=== PATIENT | female | born 1935 | race African-American/Black ===

== ENCOUNTER 2016-05-19 23:21 | Inpatient (IN) | payer MEDICARE, OTHER ==
--- NOTE | ~2016-05-19 | CR72 ---
[facility] A Service of [facility] & [facility] RADIOLOGY TEXT RESULTS PATIENT: LEON HERMAN LOCATION: [address] : 34 UNIT #: [id number] AGE: [address]: Dedra Callahan MD SEX: F ORDER DR: [id number] [facility] [address] [facility]. [place], [place] [address] [id number] I MR#: [id number] Acc #: [id number] NAME: LEON HERMAN : 1935 SEX: F STUDY DATE/TIME: 05/22/2016 5:17 UNIT: [facility] ROOM: [facility] STUDY DESCRIPTION: CR Chest Single View Portable Attending Physician: Dedra Callahan M.D. Ordering Physician: Lissett Smith M.D. Primary Care Physician: Narinder Kay M.D. MEDICAL IMAGING REPORT This report is preliminary unless electronic signature is present EXAM Portable chest INDICATION Aspiration pneumonia. Shortness of air. Respiratory failure. Follow-up endotracheal tube. FINDINGS Today's portable view of the chest is compared with yesterday's study and there has been no change. The endotracheal tube and central venous catheter is stable and there are diffuse predominantly lower lobe infiltrates. Heart size is normal. Dictated by... Enrique Mora M.D. THIS IS AN ELECTRONICALLY VERIFIED REPORT Enrique Mora M.D. at 05/22/2016 12:28 PM DEBBIE/mya TD: 05/22/2016 09:08 JOB #: [id number] MEDICAL IMAGING REPORT Page 1 of 1 COPY
--- NOTE | ~2016-05-19 | FU ---
[facility] Nutrition Therapy DATE: 05/26/16 Patient: LEON HERMAN Physician: MARTHA Address: [address] [facility] Room/Bed: [address], Zip: [place] [address] Admit Date: 05/20/16 Date of : 34 Height: 5 4 Weight: 139 63.5 NUTRITION MONITORING/FOLLOW-UP: Reason: Follow-up Anthropometrics: Ht: 5'7" Adm wt: 48.2 kg (106#) BMI: 16.6 Current wt not accurate (63.2 kg) Labs: K+ 3.2, Cl- 99, Ca++ 7.9, Alb 1.7 Meds: Dopamine, NaCl, Versed, Protonix, Ascorbic acid, Mg, K I&O's: 4882/2300, last BM 05/26 Skin: Pressure ulcer (coccyx), contractures (L leg, BUBBA arms) Estimated Nutrition Needs: 7595-6901 kcal (35-40 kcal/kg) 72-96 g protein (1.5-2.0 g/kg) Assessment: Chart reviewed, events noted. Pt is still intubated in ICU. Enteral nutrition has been on hold since 05/23. Per RN, PEG was leaking around site. RN stated pt had KUB which showed no GI issues, except balloon from PEG was not inflated; balloon is now inflated. Per RN, pt's GI motility is slow, requested slow rate X 24 hrs for enteral nutrition. See recommendations below. Dx: Severe protein calorie malnutrition RT current clinical condition, multiple areas of skin breakdow AEB enteral nutrition on hold, delayed wound healing, BMI 16.6, 79% IBW. -ACTIVE Intervention: 1. Enteral nutrition Monitoring, Evaluation and Goals: 1. Enteral nutrition; provide >80% of estimated nutrition needs and goal volume X 24 hrs 2. Weight; prevent unintentional weight loss, promote gradual weight gain 3. Skin; promote skin healing 4. GI; promote regular GI function Recommendations: 1. Once medically feasible, initiate enteral nutrition of TwoCal @ 20 mL/hr, increase by 10 mL q 6 hrs to goal rate of 40 mL/hr x 24 hrs (to run for 24 hrs instead of the previous regimen). This will provide: 1920 kcal/ 80 g protein/ 672 mL H2O. [facility] Nutrition Therapy DATE: 05/26/16 Patient: DANIELAJEFFERSON GRISSOMZULEYMA Physician: MARTHA Address: [address] [facility] Room/Bed: [address], Zip: [place] [address] Admit Date: 05/20/16 Date of : 34 Height: 5 4 Weight: 139 63.5 2. Once enteral nutrition resumed, add Sanchez BID to enteral nutrition regimen to promote skin healing. 3. Obtain accurate weight for trending purposes. Status: Pt is at a severe nutritional risk. RD will f/u per protocol. Respectfully, Azalea Mcmullen, Charger Claire Sin, RD, LD Food and Nutritional Services [facility] cc: client file
--- NOTE | ~2016-05-19 | EKG ---
PATIENT: LEON HERMAN UNIT #: [id number] Ventricular Rate: 54 BPM Atrial Rate: 54 BPM P-R Interval: 136 ms QRS Duration: 86 ms Q-T Interval: 482 ms QTC Calculation(Bezet): 457 ms P Enola: 32 degrees Calculated R Enola: -9 degrees Calculated T Enola: 37 degrees Diagnosis Line: Sinus bradycardia Diagnosis Line: Low voltage QRS Diagnosis Line: Borderline ECG Diagnosis Line: When compared with ECG of 21-MAY-2016 18:34, Diagnosis Line: Sinus rhythm has replaced Atrial fibrillation Diagnosis Line: Vent. rate has decreased BY 95 BPM Diagnosis Line: Questionable change in QRS axis Diagnosis Line: ST no longer depressed in Anterolateral leads Diagnosis Line: T wave inversion no longer evident in Diagnosis Line: Anterolateral leads Diagnosis Line: Confirmed by ANA MARIA CALDWELL MD ([id number]) on 05/27/2016 Diagnosis Line: 10:23:02 PM INTERPRETING MD: PAULETTE FRIAS
--- NOTE | ~2016-05-19 | CR72 ---
[facility] A Service of [facility] & [facility] RADIOLOGY TEXT RESULTS PATIENT: LEON HERMAN LOCATION: [address]13 : 34 UNIT #: [id number] AGE: [address]: Dedra Callahan MD SEX: F ORDER DR: [id number] [facility] [address] [facility]. [place], [place] [address] [id number] I MR#: [id number] Acc #: [id number] NAME: LEON HERMAN : 1935 SEX: F STUDY DATE/TIME: 05/21/2016 19:48 UNIT: [facility] ROOM: [facility] STUDY DESCRIPTION: CR Chest Single View Portable Attending Physician: Dedra Callahan M.D. Ordering Physician: Lissett Smith M.D. Primary Care Physician: Narinder Kay M.D. MEDICAL IMAGING REPORT This report is preliminary unless electronic signature is present EXAM Portable chest, 05/21/2016 HISTORY Shortness of air. Intubated. Central line placement today. FINDINGS Right IJ central line has been placed since earlier today with its tip in the right atrium 1 cm beyond the junction of the SVC and right atrium. No pneumothorax. Persistent extensive interstitial infiltrate throughout the right lung and [id number] interstitial infiltrate in the left lung base. These are stable compared to earlier today. Persistent small bilateral pleural effusions. ETT tip remains 4 cm above the rosetta. Dictated by... Michael Dhillon M.D. THIS IS AN ELECTRONICALLY VERIFIED REPORT Michael Dhillon M.D. at 05/21/2016 11:28 PM LALITA/demian TD: 05/21/2016 21:12 JOB #: [id number] MEDICAL IMAGING REPORT Page 1 of 1 COPY
--- NOTE | ~2016-05-19 | CO ---
Unit #: [id number] #: [id number] Patient: LEON HERMAN [id number] [address] [place], [place] [address] [id number] I MR#: [id number] NAME: LEON HERMAN ROOM: [facility] Age: 80 Sex: F Admission Date: 05/20/2016 : 1935 Attending Physician: Dedra Callahan M.D. Primary Care Physician: Narinder Kay M.D. CONSULTATION REPORT REASON FOR CONSULTATION Critical care management. CHIEF COMPLAINT Shortness of breath. HISTORY OF PRESENT ILLNESS This patient basically is known to me from previous admission. Has a past medical history of hypoxic respiratory failure. Presents with a complaint of shortness of breath and has been admitted with impression of respiratory failure secondary to aspiration pneumonia, dehydration and history of decubitus ulcer. Started on IV antibiotics. She was admitted on May 20 and we have been consulted after patient became acutely decompensated and was in progressive respiratory failure and required intubation. She is currently on a ventilation and sedated. No IV access. We were asked to place the IV access. I am seeing the patient at the bedside. No family available. She is sedated, intubated, on a ventilator. REVIEW OF SYSTEMS Unobtainable. PAST MEDICAL HISTORY Significant for: 1. Coronary artery disease. 2. Hypertension. 3. Dyslipidemia. 4. Intracranial hemorrhage. 5. Vascular dementia. 6. Anemia. 7. Hydronephrosis. 8. Sacral decubitus ulcer. 9. Pseudomonas UTI. 10. Pneumonia. 11. C. diff colitis. 12. EGD. SOCIAL HISTORY Nonsmoker. No alcohol, no drug abuse. MEDICATIONS As per APR, has been reviewed. Unit #: [id number] #: [id number] Patient: LEON HERMAN ALLERGIES Have been reviewed. PHYSICAL EXAMINATION GENERAL: Currently sedated, intubated. VITAL SIGNS: Temperature is 98, pulse is 140, respirations 20 and blood pressure 90/40. NEUROLOGICAL: Sedated, intubated. CVS: S1+ S2. RESPIRATIONS: Bilateral air entry, bilateral mild rhonchi. GI: Nontender, soft. Bowel sounds positive. EXTREMITIES: Positive edema. DIAGNOSTIC STUDIES LABORATORY: pH of 7.36, pCO2 of 49, pO2 was 361. This was before intubation. Creatinine is 0.8. White count is 18, hemoglobin 8, hematocrit 27, platelet count is 406. ASSESSMENT AND PLAN 1. Acute hypoxic respiratory failure. 2. Pneumonia. 3. 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 4. History of Clostridium difficile colitis. 5. History of severe dementia. 6. Critically ill patient. 7. Shock. 8. Atrial fibrillation. Plan is to continue ventilator support, IV pressors, IV amiodarone. Broad spectrum antibiotics as per infectious disease which is already on board. GI and DVT prophylaxis. Continue current treatment. Will need bronchoscopy. Patient will be closely monitored. Total critical care time is 70 minutes in direct critical care of this patient. Dictated by... Coral Patrick/yenifer TD: 05/22/2016 05:54 JOB #: [id number] CONSULTATION REPORT Page 1 of 1 X Lissett Smith MD X CONSULTATION REPORT
--- NOTE | ~2016-05-19 | HP ---
Unit #: [id number] #: [id number] Patient: LEON HERMAN [id number] [address] [place], [place] [address] [id number] I MR#: [id number] NAME: LEON HERMAN ROOM: 313 Age: 80 Sex: F Admission Date: 05/20/2016 : 1935 Attending Physician: Eve Jeffery M.D. Primary Care Physician: Narinder Kay M.D. HISTORY AND PHYSICAL CHIEF COMPLAINT Respiratory failure/aspiration pneumonia, dehydration. 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 The patient's son is no longer present. He told the ER physician that the patient's O2 sats were noted to be low a few days ago via home health. She was brought to this emergency department late last evening with stable vital signs but with an O2 saturation of 90% on room air, and increased respirations. Chest x-ray shows mild to moderate bibasilar atelectasis versus infiltrates. In the ER, she was given IV vancomycin, and Zosyn. Also given one dose of Solu-Medrol although does not have significant bronchospasm. Labs are notable for an elevated lactic acid of 2, and dehydration. I have asked that a liter of IV saline be infused. The patient, herself, looks to be fairly comfortable except that she is mildly tachypneic. Of note, she has her own teeth. The patient was last admitted to this facility 03/30/2016 for aspiration pneumonia. Underwent bronchoscopy revealing thick secretions which were suctioned. Sputum cultures were only positive for normal respiratory trung. Blood cultures were negative. She did develop C. difficile colitis during that hospitalization. She was admitted 03/22/2016 with pneumonia. Blood cultures at that time were positive for Staph coag negative bacteremia, and she did have Pseudomonas urinary tract infection. Does have a chronic Concepcoin in place. PAST MEDICAL HISTORY 1. CAD, treated medically. Last echo 05/2015 revealed an ejection fraction of about 55% with mild MR and TR. Previous non-ST elevation MT 05/2015. 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 Is not anticoagulated due to previous hemorrhagic CVA. 2. Hypertension. 3. Hyperlipidemia. 4. Previous intracranial hemorrhage 11/2014. The patient is nonverbal. Requires chronic Concepcion catheter due to sacral decubitus, and requires PEG tube for dysphagia with tube feedings. 5. Vascular dementia. 6. Immobilization syndrome. 7. Anemia. 8. Hydronephrosis, status post ureteral sent and removal. Unit #: [id number] #: [id number] Patient: LEON HERMAN 9. Sacral decubitus. 10. Admission 03/22 through 03/29/2016 for Pseudomonas UTI, pneumonia with Staph coag negative bacteremia. 11. C. difficile colitis. 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 13. Chronic kidney disease. 14. EGD revealing mild gastritis. 15. Debridement of a sacral decubitus ulcer. 16. Exploratory lap with repair of parastomal hernia, and colostomy revision. The patient is status post sigmoid diverting colostomy for her sacral decubitus. ALLERGIES Sulfa. MEDICATIONS Home medications from the best I can determine include: 1. Aspirin 81 mg daily. 2. Sodium bicarb 650 mg daily. 3. Vitamin C 500 mg daily. 4. Prozac 20 mg daily. 5. Amiodarone 100 mg daily. 6. Lasix 20 mg daily. 7. Probiotic. 8. Lopressor 50 mg b.i.d. 9. Combivent. 10. The patient take 2 Art 40 at 60 mL/hour from 7 a.m. to 7 p.m. Likely takes free water flushes but I do not know which free water flushes. FAMILY HISTORY Noncontributory given patient's age. SOCIAL HISTORY The patient lives with her son and son's family who take good care of the patient. Also, home health. Stopped smoking four years ago, does not drink alcohol. REVIEW OF SYSTEMS Impossible to obtain as patient is nonverbal. PHYSICAL EXAMINATION GENERAL APPEARANCE: Thin, nonverbal 80-year-old female who is awake and alert. She does nod her head at time to answers. VITAL SIGNS: Temperature 98.6, pulse 65, respirations 16, blood pressure 127/57. O2 saturation is 90% on room air. HEENT: Eyes PERRLA. Extraocular muscles are intact. Pharynx - patient refuses to open her mouth. NECK: Supple without adenopathy or thyromegaly. CHEST: Diminished breath sounds. CARDIAC: Normal S1 and S2 without definite murmur. ABDOMEN: Bowel sounds are present. There is a PEG tube in the upper abdomen. There is a colostomy left abdomen. Nontender. No masses. No hepatosplenomegaly. EXTREMITIES: Without edema. There is a flexion contraction of the left hand and left knee with atrophy of the left leg. NEUROLOGIC EXAM: The patient is awake, alert. She is essentially nonverbal although will nod her head occasionally. She has evidence of left hemiparesis, and has flexion contraction of the left hand along with Unit #: [id number] #: [id number] Patient: LEON HERMAN left knee. DIAGNOSTIC STUDIES LABORATORY: Admission labs - hematocrit is 30, down from 32.4 in March. Normal MCV. White blood count is 11. Normal platelet count. SMA-12 - glucose 136, BUN 41, chloride is 96, CO2 33. Albumin is 2.8. BNP normal. Lactic acid is 2. IMAGING: Chest x-ray shows mild to moderate bibasilar atelectasis versus infiltrates. CARDIOVASCULAR: EKG - normal sinus rhythm, rate 65. Q noted in III and AVF. ASSESSMENT 1. Acute hypoxic respiratory failure, likely related to aspiration pneumonia. 2. Dehydration. 3. Prior cerebrovascular accident with dysphagia requiring PEG tube: Patient is nonverbal. She has left sided weakness with immobilization syndrome and likely vascular dementia. 4. Coronary artery disease with tachybrady syndrome, atrial and ventricular arrhythmias. The patient is not an anticoagulation candidate due to her previous hemorrhagic cerebrovascular accident. 5. History of hypertension. 6. Hyperlipidemia. 7. Dementia. 8. Chronic normocytic anemia. 9. Chronic Concepcion catheter in place. 10. Diverting colostomy for sacral decubitus. 11. History of Clostridium difficile colitis. PLANS 1. Vancomycin and Zosyn. 2. IV fluids. 3. SCDs for DVT prophylaxis. 4. Xopenex mini nebs. 5. Change Concepcion catheter in the morning. 6. Start Florastor. 7. Discontinue Lasix. 8. custodial prognosis is poor. Dictated by Coral Storey/df TD: 05/20/2016 05:25 JOB #: [id number] Unit #: [id number] #: [id number] Patient: LEON HERMAN HISTORY AND PHYSICAL Page 1 of 1 X Eve Jeffery MD X HISTORY AND PHYSICAL
--- NOTE | ~2016-05-19 | FU ---
[facility] Nutrition Therapy DATE: 05/29/16 Patient: LEON HERMAN Physician: MARTHA Address: [address] [place] [address] Room/Bed: [address], Zip: [place] [address] Admit Date: 05/20/16 Date of : 34 Height: 5 4 Weight: 155 70.5 NUTRITION MONITORING/FOLLOW-UP: Reason: Nutrition follow up Anthropometrics: Ht: 67" Adm wt: 48.2 kg BMI: 16.6, 79% IBW Wt 05/29: 70.5 kg This weight is likely inaccurate based on the pt's frail appearance and her admission weight Labs: Cl- 97 Gluc 230 Ca++ 8.1 Alb 2.0 Accuchecks 207 CRP 1.5 Meds: Bumex, dopamine, NaCl, versed, fentanyl, sodium bicarbonate, protonix, ascorbic acid, reglan, MgSO4, KCl I&O's: 3252/4825, last BM 05/28 Skin: No changes noted Edema: None noted Estimated Nutrition Needs: 1070-8153 kcals (35-40 kcals/kg) 72-96 grams protein (1.5-2.0 grams/kg) Assessment: Chart reviewed, events noted. Pt remains intubated in the ICU. Pt is receiving the recommended TwoCal @ 40 mL/hr x 24 hrs. RN reports the pt is tolerating enteral nutrition. Per pump history, the pt has received 92% enteral goal volume over the past 48 hrs. Pt has elevated blood glucose levels. Please see recommendations below. Dx: Severe PCM RT clinical condition, multiple areas of skin breakdown AEB delayed wound healing, BMI 16.6, 79% IBW. Intervention: 1. Enteral nutrition Monitoring, Evaluation and Goals: GOALS BEING MET OR IN PROGRESS 1. Enteral nutrition; continue to provide >80% goal volume 2. Labs; WNL: glucose 3. Weight; prevent weight loss, promote weight gain 4. Skin; promote healing Recommendations: 1. Continue enteral nutrition with TwoCal @ 40 mL/hr x 24 hrs. [facility] Nutrition Therapy DATE: 05/29/16 Patient: LEON HERMAN Physician: MARTHA Address: [address] [place] [address] Room/Bed: [address], Zip: [place] [address] Admit Date: 05/20/16 Date of : 34 Height: 5 4 Weight: 155 70.5 2. Ensure HOB is upright at a minimum of 30-45 degrees during EN administration. 2. Optimize the pt's insulin regimen d/t elevated blood sugars. Status: Pt is at moderate nutritional risk. RD will continue to follow. Respectfully, FELICIA NOWAK RD, LD Food and Nutritional Services [facility] cc: client file
--- NOTE | ~2016-05-19 | CR72 ---
[facility] A Service of [facility] RADIOLOGY TEXT RESULTS PATIENT: LEON HERMAN LOCATION: [place] [address]-13 : 34 UNIT #: [id number] AGE: [address]: Navarro Gandhi MD SEX: F ORDER DR: [id number] [facility] [address] [facility]. [place], [place] [address] [id number] I MR#: [id number] #: [id number] NAME: LEON HERMAN : 1935 SEX: F STUDY DATE/TIME: 05/23/2016 4:50 UNIT: [facility] ROOM: [facility] STUDY DESCRIPTION: CR Chest Single View Portable Attending Physician: Dedra Callahan M.D. Ordering Physician: Lissett Smith M.D. Primary Care Physician: Narinder Kay M.D. MEDICAL IMAGING REPORT This report is preliminary unless electronic signature is present EXAM Frontal chest, 05/23/2016 INDICATION Aspiration pneumonia in an 80-year-old female. Respiratory failure, intubation. Symptoms 10 days. TECHNIQUE Frontal chest COMPARISON 05/22/2016 FINDINGS ET tube tip in good position above the rosetta. Right-sided central line unchanged. Cardiac silhouette stable. The lungs are emphysematous. There has been improvement of interstitial and alveolar infiltrates in the lung bases right greater than left. Trace effusions persist. Stable to slight interval improvement of more diffuse interstitial and alveolar opacities in the remainder of the mid and upper lung zones right greater than left. No pneumothorax. IMPRESSION 1. Tubes and lines in satisfactory position. No pneumothorax. 2. Interval improvement of the chest compared to 05/22/2016 as described. Dictated by... Matty Mcdonald M.D. THIS IS AN ELECTRONICALLY VERIFIED REPORT Matty Mcdonald M.D. at 05/26/2016 9:13 AM Trevor [facility] A Service of [facility] RADIOLOGY TEXT RESULTS PATIENT: LEON HERMAN LOCATION: [address] : 34 UNIT #: [id number] AGE: [address]: Navarro Gandhi MD SEX: F ORDER DR: TD: 05/23/2016 09:08 JOB #: [id number] MEDICAL IMAGING REPORT Page 1 of 1 COPY
--- NOTE | ~2016-05-19 | EKG ---
PATIENT: LEON HERMAN UNIT #: [id number] Ventricular Rate: 65 BPM Atrial Rate: 65 BPM P-R Interval: 130 ms QRS Duration: 78 ms Q-T Interval: 408 ms QTC Calculation(Bezet): 424 ms P Golden: 46 degrees Calculated R Golden: 0 degrees Calculated T Golden: 58 degrees Diagnosis Line: Normal sinus rhythm Diagnosis Line: Low voltage QRS Baseline wander Diagnosis Line: Inferior infarct (cited on or before 19-MAY-2016) Diagnosis Line: Abnormal ECG Diagnosis Line: When compared with ECG of 19-MAY-2016 22:11, Diagnosis Line: (unconfirmed) Diagnosis Line: No significant change was found Diagnosis Line: Confirmed by AGAPITO HERNANDES MD ([id number]) on 05/21/2016 Diagnosis Line: 9:11:48 PM INTERPRETING MD: GRETA FRIAS
--- NOTE | ~2016-05-19 | FU ---
[facility] Nutrition Therapy DATE: 05/23/16 Patient: LEON HERMAN Physician: MARTHA Address: [address] [facility] Room/Bed: [address], Zip: [place] [address] Admit Date: 05/20/16 Date of : 34 Height: 5 4 Weight: 141 64 NUTRITION MONITORING/FOLLOW-UP: Reason: TF F/U Anthropometrics: Ht: 5'7" Adm wt: 48.2 kg (106#) BMI: 16.6 *Please note: pt's weight from 05/23 in [employer] is 64 kg, which is not accurate. RD discussed this with RN Labs: Cl- 114, Gluc 155, Alb 2.0 Meds: Dopamine, NaCl, Versed, Fentenyl, Protonix, Ascorbic acid I&O's: 4262/057, last BM 05/22 Skin: Stage IV pressure ulcer (L ischial), wound (cocccyx), bruise (BUBBA hands) intact abrasion (L knee), scar (coccyx, L elbow) Estimated Nutrition Needs: 4555-7093 kcal (35-40 kcal/kg) 72-96 g protein (1.5-2.0 g/kg) Assessment: Chart reviewed, events noted. Pt is now intubated in the ICU. RD was following the pt previously on 3A. Enteral nutrition has been on hold since yesterday (05/22). Yesterday, RN stated pt may be aspirating on secretions. PER RN, PEG is to gravity suction and is draining from tube and around site. RD discussed obtaining KUB or CT abdomen with RN due to this. See new nutrition diagnosis. Dx: Severe protein calorie malnutrition RT current clinical condition, multiple areas of skin breakdown AEB enteral nutrition on hold, delayed wound healing, BMI 16.6, 79% IBW. Intervention: 1. Enteral nutrition support Monitoring, Evaluation and Goals: 1. Enteral nutrition; provide >80% of estimated nutrition needs and goal volume x 24 hrs 2. Weight; prevent unintentional weight loss 3. Skin; promote skin healing 4. Labs; WNL: gluc 5. GI; promote regular GI function Recommendations: 1. Consider GI consult or obtaining KUB d/t PEG output. 2. Once medically feasible, begin enteral nutrition with TwoCal @ 20 mL/hr, increase by 10 [facility] Nutrition Therapy DATE: 05/23/16 Patient: LEON HERMAN Physician: MARTHA Address: [address] [facility] Room/Bed: [address], Zip: [place] [address] Admit Date: 05/20/16 Date of : 34 Height: 5 4 Weight: 141 64 mL q 6 hrs as tolerated to goal rate of 60 mL/hr x 15 hrs from 7a-10p. This will provide: 1800 kcals/ 75 g protein/ 630 mL free H20. 3. Once enteral nutrition is resumed, add Sanchez BID to the pt's enteral regimen to promote wound healing. 4. Please obtain accurate weights due to inaccurate weights in [employer]. Status: Pt is at a moderate-severe nutritional risk. RD will f/u per protocol. Respectfully, Azalea Mcmullen, [employer]acking [employer] Machine Operator Claire Sin, RD, LD Food and Nutritional Services [facility] cc: client file
--- NOTE | ~2016-05-19 | CR71 ---
[facility] A Service of [facility] & [facility] RADIOLOGY TEXT RESULTS PATIENT: LEON HERMAN LOCATION: [place] [address]13 : 34 UNIT #: [id number] AGE: [address]: Navarro Gandhi MD SEX: F ORDER DR: [id number] [facility] [address] [place], [place] [address] [id number] I MR#: [id number] Acc #: [id number] NAME: LEON HERMAN : 1935 SEX: F STUDY DATE/TIME: 05/27/2016 4:22 UNIT: [facility] ROOM: [facility] STUDY DESCRIPTION: CR Chest Single View Attending Physician: Navarro Gandhi M.D. Ordering Physician: Navarro Gandhi M.D. Primary Care Physician: Narinder Kay M.D. MEDICAL IMAGING REPORT This report is preliminary unless electronic signature is present EXAM Portable chest INDICATIONS Sepsis. Follow up. PROCEDURE Frontal view chest. COMPARISON 05/26/2016 FINDINGS Stable heart size. Slightly increasing opacity in the right mid lower lung zone. Probable right effusion. ET tube is stable. IMPRESSION Slightly increasing opacity and pleural fluid in the right lung base. Dictated by... South Haddad M.D. THIS IS AN ELECTRONICALLY VERIFIED REPORT South Haddad M.D. at 05/27/2016 10:14 PM ROSINA/daniella TD: 05/27/2016 06:13 JOB #: [id number] MEDICAL IMAGING REPORT Page 1 of 1 COPY
--- NOTE | ~2016-05-19 | CR72 ---
[facility] A Service of [facility] RADIOLOGY TEXT RESULTS PATIENT: LEON HERMAN LOCATION: [place] [id number] : 34 UNIT #: [id number] AGE: [address]: Navarro Gandhi MD SEX: F ORDER DR: [id number] [facility] [address] [place], [place] [address] [id number] I MR#: [id number] Acc #: [id number] NAME: LEON HERMAN : 1935 SEX: F STUDY DATE/TIME: 05/24/2016 5:05 UNIT: [facility] ROOM: [facility] STUDY DESCRIPTION: CR Chest Single View Portable Attending Physician: Navarro Gandhi M.D. Ordering Physician: Lissett Smith M.D. Primary Care Physician: Narinder Kay M.D. MEDICAL IMAGING REPORT This report is preliminary unless electronic signature is present EXAM Portable chest, 05/24/2016 HISTORY Respiratory failure and pneumonia for 11 days. COMPARISON Chest, 05/23/2016 FINDINGS Frontal chest demonstrates tubes and lines in stable position. No pneumothorax. Bibasilar infiltrates are unchanged. Heart size and mediastinum are stable. IMPRESSION 1. Tubes and lines stable. No pneumothorax. 2. No change in bibasilar infiltrates. Dictated by... Sky Tang M.D. THIS IS AN ELECTRONICALLY VERIFIED REPORT Sky Tang M.D. at 05/24/2016 11:29 PM Arelis TD: 05/24/2016 15:52 JOB #: [id number] MEDICAL IMAGING REPORT Page 1 of 1 COPY
--- NOTE | ~2016-05-19 | CR72 ---
[facility] A Service of [facility] & [facility] RADIOLOGY TEXT RESULTS PATIENT: LEON HERMAN LOCATION: [place] [id number] : 34 UNIT #: [id number] AGE: [address]: Dedra Callahan MD SEX: F ORDER DR: [id number] [facility] [address] [place], [place] [address] [id number] I MR#: [id number] Acc #: [id number] NAME: LEON HERMAN : 1935 SEX: F STUDY DATE/TIME: 05/21/2016 19:07 UNIT: [facility] ROOM: [facility] STUDY DESCRIPTION: CR Chest Single View Portable Attending Physician: Dedra Callahan M.D. Ordering Physician: Staff Doctor Not On Primary Care Physician: Narinder Kay M.D. MEDICAL IMAGING REPORT This report is preliminary unless electronic signature is present EXAM Portable chest HISTORY Shortness of air. Intubation today. FINDINGS ETT tip is 3.5 cm above the rosetta. Moderately extensive, predominantly interstitial infiltrates throughout the right lung, greater on the right lower lung and [id number] interstitial infiltrate in the left lower lung have increased bilaterally as compared to earlier today. New or increasing small bilateral pleural effusions, also greater on the right. Dictated by... Michael Dhillon M.D. THIS IS AN ELECTRONICALLY VERIFIED REPORT Michael Dhillon M.D. at 05/21/2016 11:27 PM DFL/rnr TD: 05/21/2016 19:36 JOB #: [id number] MEDICAL IMAGING REPORT Page 1 of 1 COPY
--- NOTE | ~2016-05-19 | TOC ---
Unit #: [id number] #: [id number] Patient: LEON HERMAN [id number] [address] [address] [id number] I MR#: [id number] NAME: LEON HERMAN ROOM: [facility] Age: 80 Sex: F Admission Date: 05/20/2016 : 1935 Attending Physician: Dedra Callahan M.D. Primary Care Physician: Narinder Kay M.D. TRANSFER OF CARE SUMMARY DIAGNOSES 1. Septic shock. 2. Sepsis from aspiration pneumonia. 3. Bilateral recurrent aspiration pneumonia, status post PEG placement in the past. 4. Influenza A infection. 5. Severe anemia, rule out GI bleed. 6. Severe protein malnutrition. 7. Stage 4 large decubitus ulcer on the left ischial area. 8. Acute respiratory failure requiring ventilation. Hypercapnic hypoxic. 9. Dehydration. 10. History of stroke requiring PEG tube placement. The patient is nonverbal. 11. Coronary artery disease with tachybrady syndrome. 12. Hypertension. 13. Hyperlipidemia. 14. 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 15. Chronic Concepcion catheter placement. 16. History of diverting colostomy for sacral decubitus ulcer. 17. History of c-diff colitis. 18. History of urinary tract infection with pseudomonas. 19. Under weight with moderate protein and calorie malnutrition. 20. Abnormal TSH, most likely secondary to being on amiodarone. 21. Diabetes mellitus type 2, uncontrolled. 22. Intolerance to tube feeds with drainage on the PEG area. Tube feeds have been on hold. CONSULTANTS Dr. Talbert. Dr. Smith. Dr. West. PROCEDURES PERFORMED The patient had central venous placement on 05/20/2016. DIAGNOSTIC DATA IMAGING: Chest x-ray shows no pneumothorax. Interstitial bilateral infiltrates present. Ultrasound of the extremities negative for DVT. LABORATORY: White blood cell count 26.3, hemoglobin 7.4, platelets 333. Sputum culture normal respiratory trung. Urine culture normal. ABG, pH Unit #: [id number] #: [id number] Patient: LEON HERMAN 7.29, carbon dioxide (1) 131, TSH 0.11, free T4 3.41, c-diff negative. Legionella and strep pneumonia negative. Influenza A positive. Lactic acid 1.7. Blood cultures negative. HOSPITAL COURSE The patient is an 80-year-old admitted with shortness of breath. Septic shock: The patient is on IV antibiotics and IV dopamine. Sepsis from recurrent pneumonia: Currently the patient is on broad spectrum antibiotics and infectious disease is following. She is on Nebcin and Zosyn. Acute hypercapnia: The patient is currently intubated. The patient's family wants DNR, but they want everything else to be done including intubation. Influenza A infection: The patient was started on Tamiflu. Anemia: Severe and chronic. Rule out GI bleed. The patient will be seen by Dr. Talbert. PEG site drainage: I am going to do KUB and Dr. Talbert is to follow. Sacral decubitus ulcer: Stage 4. Present on admission. The patient is being followed by Dr. Escalera. Atrial fibrillation: Rapid ventricular rate. The patient was on IV amiodarone which is being tapering off by cardiology. The patient is DNR. PROGNOSIS Very, very poor prognosis. High risk of because of septic shock, sepsis, respiratory failure and recurrent aspiration pneumonia and history of stroke. Discussed with the son. He wants everything to be done for now. Dictated by... Dedra Callahan M.D. KJ/johny TD: 05/23/2016 11:13 JOB #: [id number] CC: Narinder Kay M.D. TRANSFER OF CARE SUMMARY Page 1 of 1 X Ddera Callahan MD TRANSFER OF CARE SUMMARY
--- NOTE | ~2016-05-19 | CO ---
Unit #: [id number] #: [id number] Patient: LEON HERMAN [id number] [address] [place], [place] [address] [id number] I MR#: [id number] NAME: LEON HERMAN ROOM: 313 Age: 80 Sex: F Admission Date: 05/20/2016 : 1935 Attending Physician: Dedra Callahan M.D. Primary Care Physician: Narinder Kay M.D. Requesting Physician: Eve Jeffery M.D. Consultation Date: 05/20/2016 CONSULTATION REPORT REASON FOR CONSULTATION Osteomyelitis. HISTORY OF PRESENT ILLNESS This is an 80-year-old female who has a history of a CVA and she is currently nonverbal. The patient was admitted to the hospital via her family for low saturations by the home health team. The patient also had some elevated respiratory respirations. The patient had a chest film that showed bibasilar atelectasis versus infiltrates and the patient was started on steroids, vancomycin and Zosyn. The patient was admitted to the hospital for further evaluation and she was noted to have some chronic wounds on her sacral and ischial areas. She was seen by Dr. Escalera. There was concern for clinical osteomyelitis and infectious disease was consulted for antibiotic management. The patient's chart has been reviewed as there is no family at the bedside and the patient does not speak. The patient recently had an admission for aspiration pneumonia and urinary tract infection related to pseudomonas, as well as c-diff colitis. The patient did have some questionable bacteremia with coag negative staph as well. The patient currently is awake and she is looking at me. She is able to answer yes or no questions easily. The patient denies any fever or chills at home. She denies any shortness of breath or cough at this time. Otherwise it is limited due to not being able to speak. PAST MEDICAL HISTORY 1. Coronary artery disease with an ejection fraction of 55 with a non-ST elevated myocardial infarction in 2016 and some arrhythmias. 2. History of hypertension. 3. Hyperlipidemia. 4. Intracranial hemorrhage in 11/2014 which has left the patient nonverbal status post PEG tube. The patient is also immobile. 5. Vascular dementia. 6. Immobilization syndrome. 7. Anemia. 8. Hydronephrosis status post ureteral stent and removal. 9. Sacral decubitus. 10. Pseudomonas urinary tract infection. 11. Pneumonia. 12. C-diff colitis. 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 14. Chronic kidney disease. 15. EGD with gastritis in the past. 16. History of hernia and colostomy revision in the past. SOCIAL HISTORY Unit #: [id number] #: [id number] Patient: LEON HERMAN The patient lives with family. She has no current tobacco use or alcohol abuse. ALLERGIES Sulfa. CURRENT MEDICATIONS 1. Vancomycin. 2. Zosyn. 3. For further medications please refer to the patient's MAR. The patient did get steroids in the emergency room. REVIEW OF SYSTEMS Limited except for previously mentioned above. PHYSICAL EXAMINATION GENERAL: This is a female in no apparent distress. She is currently awake. VITALS: Temperature 97.9, pulse 88, blood pressure 169/70, respiratory rate 18. HEENT: Pupils are equal. NECK: Supple. LUNGS: Diminished in the bases. No wheezes or rhonchi noted. HEART: S1 and S2. Regular rate and rhythm. ABDOMEN: Positive bowel sounds. Soft and nontender with a colostomy present. EXTREMITIES: Contractures noted. SKIN: There is a healing sacral wound without any evidence of drainage at this time. There is a left ischial wound that is large and deep. There is a minimal odor. There is no significant slough. There is some drainage, but it does not appear purulent at this time. DIAGNOSTIC STUDIES IMAGING: Chest film reveals mild to moderate patchy bibasilar infiltrates or atelectasis with mild cardiac enlargement. LABORATORY: BUN 35, creatinine 1.0, sodium 141, potassium 4.3, chloride 99, CO2 28, bilirubin 0.3, AST 22, ALT 16, lactic acid 1.7 which is improved from admission of 2.0. White blood cell count 15,000 which is increased from 10,000, hemoglobin 9.5, hematocrit 30.4 and platelets 283. Blood cultures are currently pending. ASSESSMENT This is an 80-year-old female with multiple comorbidities including CVA, from which the patient does not speak. She is also immobile. The patient now presents with suspected pneumonia and possible aspiration. Chest x-ray is noted for atelectasis or infiltrate. The patient appears nontoxic and breathing well on a nasal cannula at this time. The patient also is with a large left pressure ulcer, suspected to be clinical osteomyelitis per plastic. Certainly osteomyelitis is not excluded in the differential. PLAN At this time, would like to continue local wound care per Dr. Escalera. Will also check a CRP and sedimentation rate and determine family goals of care. The patient may require further imaging and surgery, but will have this wound evaluated by Dr. Fortino Miles this day. The patient also has possible pneumonia and will continue vancomycin and Zosyn. However, will Unit #: [id number] #: [id number] Patient: LEON HERMAN need to watch closely for any evidence of relapse of c-diff infection as the patient is at high risk as she recently had c-diff colitis in February. The patient does have leukocytosis, but suspect this is mainly related to the steroids that she received in the emergency room. The patient appears nontoxic at this time and will check routine labs in the morning, including a CBC and BMP. Thank you for allowing us to participate in the care of this patient. Further recommendations to follow pending the patient's clinical course. Dictated by... Cadence Corona A.P.R.N. SLS/gz TD: 05/20/2016 10:29 JOB #: [id number] CONSULTATION REPORT Page 1 of 1 X X CONSULTATION REPORT
--- NOTE | ~2016-05-19 | CO ---
Unit #: [id number] #: [id number] Patient: LEON HERMAN [id number] [address] [place], [place] [address] [id number] MR#: [id number] NAME: LEON HERMAN ROOM: [facility] Age: 80 Sex: F Admission Date: 05/20/2016 : 1935 Attending Physician: Navarro Gandhi M.D. Primary Care Physician: Narinder Kay M.D. Consultation Date: 05/23/2016 CONSULTATION REPORT REASON FOR CONSULTATION Drop in hemoglobin. HISTORY OF PRESENT ILLNESS Ms. Herman is an 80-year-old female who has multiple medical problems. Currently with aspiration pneumonia, flu, as well as septic shock and on ventilator in the ICU. Her hemoglobin was seen to be dropping some, and I was consulted. The patient has a colostomy bag. There is no apparent blood in the stool. She has a G-tube and has been fed with G-tube. Recent upper endoscopy about 6 weeks ago showed small ulcers. REVIEW OF SYSTEMS Unable to obtain. MEDICATIONS List reviewed. SOCIAL HISTORY Lives with her son. FAMILY HISTORY Not contributory. PAST MEDICAL HISTORY Significant for coronary artery disease, hypertension, hyperlipidemia, intracranial hemorrhage, vascular dementia, immobilization syndrome, chronic anemia, sacral decubitus ulcers. She also has a history of C. diff. colitis. PHYSICAL EXAMINATION GENERAL: Again, the patient is on the ventilator and unresponsive at this time. VITAL SIGNS: Otherwise, stable with temperature 98.8, pulse 71, respirations 19, blood pressure 106/48. HEENT: Pupils are reactive. Oral mucosa is moist. NECK: No JVD. No lymphadenopathy. CHEST: Scattered rhonchi. Discharged breath sounds at bases. CARDIOVASCULAR: Regular rate and rhythm. No murmurs. ABDOMEN: Soft. G-tube in place. Colostomy in place. No peritoneal signs. EXTREMITIES: Without clubbing or cyanosis. NEUROLOGIC: Examination deferred. DIAGNOSTIC STUDIES LABS: Hemoglobin 7.4, yesterday was 7.5, day before was 8. Her baseline Unit #: [id number] #: [id number] Patient: LEON HERMAN is usually between 8 and 9. White count 26.3, platelet count 333. Coags are normal. Chemistry showed normal BUN and creatinine. Normal liver function except for alkaline phosphatase of 207. ASSESSMENT AND PLAN Patient with some drop in hemoglobin. Not (1) change from her baseline. There are no signs of any overt bleeding at this time. She does have history of gastric ulcers in the past. I will continue Protonix and transfuse her as necessary. Given her multiple co-morbidities, DNR status, as well as poor prognosis overall, would recommend against any endoscopy at this time. Thank you, Dr. Callahan, for this interesting consult. Will follow along. Dictated by... Coral Rosas/collin TD: 05/24/2016 14:32 JOB #: [id number] CONSULTATION REPORT Page 1 of 1 X Papi Talbert MD X CONSULTATION REPORT
--- NOTE | ~2016-05-19 | A ---
[facility] Nutrition Therapy DATE: 05/20/16 Patient: LEON HERMAN Physician: MARTHA Address: [address] Room/Bed: [address] [place] [address], Zip: [place] [address] Admit Date: 05/20/16 Date of : [birth year] Height: 5 4 Weight: 106 48.2 NUTRITIONAL ASSESSMENT: REASON: 1 nutrition risk point RE: home TF 80 y/o female admitted for respiratory failure, aspiration pneumonia PMH: CVA, immobilization syndrome, dysphagia s/p PEG, HTN, HLD, demenita, C. diff colitis, anemia, CKD, gastritis, s/p sigmoid diverting colostomy for sacral decubitus Anthropometrics: Ht: 5'7" Wt: 48.2 kg (106#) BMI: 16.6 IBW: 135#, 79% IBW Labs: Cl- 99, Gluc 203, BUN 35, Phos 2.3 Meds: Protonix I/O & Bowel function: 300/350, last BM unknown Skin Integrity: stage 4 pressure ulcer (L upper leg), scar prior pressure ulcer (coccyx, L elbow), discolor (toes, fingers), intact abrasion (L knee), no edema noted Estimated Nutrition Needs: 1482-3754 kcal (35-40 kcal/kg) 72-96 g protein (1.5-2.0 g/kg) 0939-2149 mL fluid (30-35 ml/kg daily) OR PER MD ORDERS Assessment: Chart reviewed, events noted. Pt has a PEG and recieves home enteral nutrition. Pt is receiving 2 Art @ 60 mL/hr from 7a-10p. + 200 mL free H2O flushes q 8 hrs. This provides estimated nutrition needs (1800 kcal/ 75 g protein/ 630 mL free H2O). Pt's son was in room during time of visit. Pt's son reports turning enteral nutrition off during the day for 3-4 hrs d/t pt's aspiration risk. RD discussed w/ RN, since turning off feeds during the day would not provide adequate nutrition for pt. RN reported enteral nutriton rate was decreased and held for an hour today, for unknown reasons. Per pump history, pt recieved 13% of goal volume since admission. Pt was admitted today, and therefore, could not have received goal volume. Per RN, the pt is tolerating enteral nutrition at goal rate. See recommendations below. Dx: Enteral nutrition administation inconsistent with needs RT pt's family lack of understanding regarding enteral nutrition, recent admission AEB pt recieving 13% of goal volume, RN report above. Intervention: 1. Enteral nutrition [facility] Nutrition Therapy DATE: 05/20/16 Patient: LEON JACIELZULEYMA Physician: MARTHA Address: [address] [place] [address] Room/Bed: [address] [place] [address], Zip: [place] [address] Admit Date: 05/20/16 Date of : [birth year] Height: 5 4 Weight: 106 48.2 Monitoring, Evaluation and Goals: 1. Enteral nutrition; provide ~80-100% of estimated nutrition needs and goal volume 2. Weight; prevent unintentional weight loss, promote gradual weight gain 3. Skin; promote skin healing 4. Labs; WNL Recommendations: 1. Continue 2 Art @ 60 mL/hr x 15 hrs from 7a-10p. This will provide 1800 kcal/ 75 g protein/ 630 mL free H2O. Do not recommend holding enteral nutrition throughout the day as reported by the pt's son. This will result in enteral nutrition not meeting the pt's nutrient needs. 2. Recommend increasing free water to 215 mL q 6 hrs or per MD orders. 3. Add the following to pt's enteral nutrition regimen to promote wound healing: -Sanchez BID -MVI w/ minerals daily -500 mg Vitamin C BID -50 mg elemental zinc per day X 10 days Pt is at a moderate nutritional risk. RD will f/u per protocol. Respectfully, Azalea Mcmullen, Early Learning Teacher Claire Sin, RD, LD Food and Nutritional Services [facility] cc: client file
--- NOTE | ~2016-05-19 | OR ---
Unit #: [id number] #: [id number] Patient: LEON HERMAN [id number] [address] [address] [id number] I MR#: [id number] NAME: LEON HERMAN ROOM: [facility] Date of Procedure: Admission Date: 05/20/2016 Surgeon: Lissett Smith M.D. : 1935 Attending Physician: Dedra Callahan M.D. Primary Care Physician: Narinder Kay M.D. PROCEDURE OPERATIVE NOTE PROCEDURE PERFORMED Central venous catheter placement. INDICATION Shock and vascular access. PRE-PROCEDURE DIAGNOSIS Respiratory failure. POST-PROCEDURE DIAGNOSIS Respiratory failure. DETAILS OF THE PROCEDURE After placing patient in proper position and using all aseptic technique, with ultrasound guidance and modified Seldinger technique, a triple-lumen central venous catheter placed in the right internal jugular vein without complication. The guide wire was removed in toto. All three ports flushed and working and line was secured with two interrupted sutures in place. No complications happened. The patient tolerated the procedure very well. Dictated by... Coral Patrick/yenifer TD: 05/22/2016 06:02 JOB #: [id number] PROCEDURE OPERATIVE NOTE Page 1 of 1 X Lissett Smith MD X PROCEDURE OPERATIVE NOTE
--- NOTE | ~2016-05-19 | CR72 ---
[facility] A Service of [facility] RADIOLOGY TEXT RESULTS PATIENT: LEON HERMAN LOCATION: [place] [address]13 : [birth year] UNIT #: [id number] AGE: [address]: Navarro Gandhi MD SEX: F ORDER DR: [id number] [facility] [address] [place], [place] [address] [id number] I MR#: [id number] Acc #: [id number] NAME: LEON HERMAN : 1935 SEX: F STUDY DATE/TIME: 05/26/2016 4:11 UNIT: [facility] ROOM: [facility] STUDY DESCRIPTION: CR Chest Single View Portable Attending Physician: Navarro Gandhi M.D. Ordering Physician: Lissett Smith M.D. Primary Care Physician: Narinder Kay M.D. MEDICAL IMAGING REPORT This report is preliminary unless electronic signature is present EXAM Portable chest INDICATION Sepsis for the past 6 days. PROCEDURE Frontal view chest COMPARISON 05/25/2016 FINDINGS The heart size is unchanged. Persistent bibasilar opacity, right greater than left. ET tube stable. IMPRESSION Stable chest. Dictated by... South Haddad M.D. THIS IS AN ELECTRONICALLY VERIFIED REPORT South Haddad M.D. at 05/26/2016 9:56 PM ROSINA/alyssa TD: 05/26/2016 08:31 JOB #: [id number] MEDICAL IMAGING REPORT Page 1 of 1 COPY
--- NOTE | ~2016-05-19 | CR72 ---
[facility] A Service of [facility] & [facility] RADIOLOGY TEXT RESULTS PATIENT: LEON HERMAN LOCATION: [place] [address]13 : [birth year] UNIT #: [id number] AGE: [address]: Navarro Gandhi MD SEX: F ORDER DR: [id number] [facility] [address] [place], [place] [address] [id number] I MR#: [id number] Acc #: [id number] NAME: LEON HERMAN : 1935 SEX: F STUDY DATE/TIME: 05/30/2016 4:57 UNIT: [facility] ROOM: [facility] STUDY DESCRIPTION: CR Chest Single View Portable Attending Physician: Navarro Gandhi M.D. Ordering Physician: Lissett Smith M.D. Primary Care Physician: Narinder Kay M.D. MEDICAL IMAGING REPORT This report is preliminary unless electronic signature is present EXAM Portable chest INDICATIONS Shortness of air. PROCEDURE Frontal view chest. COMPARISON 05/29/2016 FINDINGS Stable cardiomegaly. Bilateral pleural effusions and bibasilar opacity. ET tube is stable. IMPRESSION Stable chest. Dictated by... South Haddad M.D. THIS IS AN ELECTRONICALLY VERIFIED REPORT South Haddad M.D. at 06/02/2016 7:29 AM ROSINA/daniella TD: 05/30/2016 08:00 JOB #: [id number] MEDICAL IMAGING REPORT Page 1 of 1 COPY
--- NOTE | ~2016-05-19 | CR72 ---
[facility] A Service of [facility] & [facility] RADIOLOGY TEXT RESULTS PATIENT: LEON HERMAN LOCATION: [place] [id number] : 34 UNIT #: [id number] AGE: [address]: Dedra Callahan MD SEX: F ORDER DR: [id number] [facility] [address] [place], [place] [address] [id number] I MR#: [id number] Acc #: [id number] NAME: LEON HERMAN : 1935 SEX: F STUDY DATE/TIME: 05/22/2016 12:41 UNIT: [facility] ROOM: [facility] STUDY DESCRIPTION: CR Chest Single View Portable Attending Physician: Dedra Callahan M.D. Ordering Physician: Lissett Smith M.D. Primary Care Physician: Narinder Kay M.D. MEDICAL IMAGING REPORT This report is preliminary unless electronic signature is present EXAM Portable chest HISTORY Hypoxic for past two days. . Patient intubated. TECHNIQUE Single view chest was obtained and compared with 05/22/2016 earlier in the day. FINDINGS The endotracheal tube is in good position. No new infiltrates are seen. The heart and mediastinum are stable. No enlarging pleural effusions are seen. Dictated by... Emory Stover M.D. THIS IS AN ELECTRONICALLY VERIFIED REPORT Emory Stover M.D. at 05/22/2016 6:00 PM LAURYN/daniella TD: 05/22/2016 12:55 JOB #: [id number] MEDICAL IMAGING REPORT Page 1 of 1 COPY
--- NOTE | ~2016-05-19 | OR ---
Unit #: [id number] #: [id number] Patient: LEON HERMAN [id number] [address] [address] [id number] I MR#: [id number] NAME: LENO HERMAN ROOM: [facility] Date of Procedure: 05/23/2016 Admission Date: 05/20/2016 Surgeon: Lissett Smith M.D. : 1935 Attending Physician: Navarro Gandhi M.D. Primary Care Physician: Narinder Kay M.D. PROCEDURE OPERATIVE NOTE PROCEDURE PERFORMED Diagnostic bronchoscopy INDICATION Pneumonia. PREPROCEDURE DIAGNOSIS Aspiration pneumonia. POST PROCEDURE DIAGNOSIS Pneumonia. DETAILS OF THE PROCEDURE After taking consent from patient's family, explaining risks and benefits, patient was placed in appropriate position. Bronchoscope was introduced through the endotracheal tube which was sitting well above the rosetta. We examined right upper, right middle and right lower lobe, left upper lobe, lingula and left lower lobe. No endobronchial lesion was found. There were thick mucoid secretions in both lungs which were therapeutically suctioned. Then we did a bronchoalveolar lavage in the right lower lobe area with 60 mL of saline in and 20 mL back. Patient tolerated procedure very well. No complication happened. Dictated by... Coral Patrick TD: 05/28/2016 22:51 JOB #: [id number] Unit #: [id number] #: [id number] Patient: LEON HERMAN PROCEDURE OPERATIVE NOTE Page 1 of 1 X Lissett Smith MD PROCEDURE OPERATIVE NOTE
--- NOTE | ~2016-05-19 | CR72 ---
[facility] A Service of [facility] & [facility] RADIOLOGY TEXT RESULTS PATIENT: LEON HERMAN LOCATION: [facility] [id number] : 34 UNIT #: [id number] AGE: [address]: Dedra Callahan MD SEX: F ORDER DR: [id number] [facility] [address]. [place], [place] [address] [id number] I MR#: [id number] Acc #: [id number] NAME: LEON HERMAN : 1935 SEX: F STUDY DATE/TIME: 05/19/2016 22:00 UNIT: [address] ROOM: [facility] STUDY DESCRIPTION: CR Chest Single View Portable Attending Physician: Dedra Callahan M.D. Ordering Physician: Alessandro Ayala M.D. Primary Care Physician: Narinder Kay M.D. MEDICAL IMAGING REPORT This report is preliminary unless electronic signature is present EXAM Portable chest HISTORY Shortness of air, hypoxia for 1 week. FINDINGS Figa-bb-giwdtwnb patchy bibasilar subsegmental infiltrates. There may also be additional linear atelectasis or edema in the lateral right lung base. These are new findings in the right base as compared to 04/08/2016. There is improved aeration of the left base compared to the prior study likely due to decreased or resolved left pleural effusion. There is bilateral emphysema. Mild cardiac enlargement. Normal pulmonary vascularity. IMPRESSION 1. Xknk-zd-kqnhcphb patchy bibasilar infiltrates or atelectasis. 2. Mild cardiac enlargement. Dictated by... Michael Dhillon M.D. THIS IS AN ELECTRONICALLY VERIFIED REPORT Michael Dhillon M.D. at 05/20/2016 4:00 PM LALITA/amina TD: 05/20/2016 09:15 JOB #: [id number] MEDICAL IMAGING REPORT Page 1 of 1 COPY
--- NOTE | ~2016-05-19 | CO ---
Unit #: [id number] #: [id number] Patient: LEON HERMAN [id number] [address] [place], [place] [address] [id number] I MR#: [id number] NAME: LEON HERMAN ROOM: [facility] Age: 80 Sex: F Admission Date: 05/20/2016 : 1935 Attending Physician: Dedra Callahan M.D. Primary Care Physician: Narinder Kay M.D. Consultation Date: 05/22/2016 CONSULTATION REPORT REASON FOR CONSULT Bradycardia. HISTORY OF PRESENT ILLNESS This is an 80-year-old -[place] female who has been followed in the office in the past. 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 The patient was initially admitted on 05/19/2016 with complaints of shortness of breath. She lives at home, is cared for by her son. Apparently, she had decreased oxygen saturations that was noted per the home healthcare team. Initially, she was diagnosed with respiratory failure as well as possible sepsis and dehydration. Initial lactic acid was 2.0. The patient was started on antibiotic therapy and admitted for the above. It appears she decompensated on the and was intubated, and was moved to ICU. Of note, the patient was recently in the hospital in March 2016, again secondary to aspiration pneumonia. She underwent bronchoscopy at that time. Also, was note to have C. diff colitis as well as Pseudomonas UTI. She has a chronic Concepcion catheter in place. We were asked to see the patient secondary to bradycardia. It appears the patient went into atrial fibrillation with RVR on 05/21 and was started on amiodarone drip per protocol. She is also on metoprolol per PEG tube daily. Today, the patient was noted to have bradycardia, rates in the low 50s. No evidence of high-grade AV block or junctional rhythm. Was noted cardiac enzymes thus far have been negative. EKG was performed which showed sinus bradycardia. The patient was also noted to be hypotensive with blood pressures in the 80s systolic. She has since been given a fluid bolus and started on a dopamine drip. Her amiodarone drip has been discontinued. There was also some concern for clinical osteomyelitis as the patient has wounds, sacral decubitus, as well as an ischial wound. Surgery has been consulted and currently is doing dressing changes. The patient has a history of multiple debridements in the past. She is also being followed by infectious disease and they are managing her antibiotic therapy. At Unit #: [id number] #: [id number] Patient: LEON HERMAN present, the patient is noted to be a DNR. This was discussed with her son. With initiation of dopamine and fluid bolus, the patient's heart rate now is up into the 70s and 80s and blood pressure in the 120s. Previous non-STEMI in May 2015. PAST MEDICAL HISTORY 1. Coronary artery disease, treated medically. No records available for review. 2. Echocardiogram from May 2015 showed LVEF 55%, mild MR and TR, RVSP 30 to 40 mmHg, impaired LV relaxation. 3. Non-STEMI 05/2015. 4. Hypertension. 5. Hyperlipidemia. 6. Paroxysmal atrial fibrillation, not on anticoagulation secondary to previous intracranial hemorrhage in 2014. 7. Cardiovascular accident. The patient is nonverbal. 8. Previous intracranial hemorrhage 11/2014. 9. Vascular dementia. 10. Immobilization syndrome. 11. History of atrial and ventricular arrhythmias as well as tachybrady syndrome. 12. Anemia. 13. Hydronephrosis, post ureteral stent and removal in the past. 14. Sacral decubitus as well as ischial wound. 15. Chronic Concepcion catheter. 16. History of C. diff colitis. 17. Chronic kidney disease. 18. Multiple debridements. 19. Dysphagia with PEG tube placement. 20. Abdominal aortic aneurysm, status post endovascular stent in 2011. ALLERGIES Sulfa. PAST SURGICAL HISTORY 1. Multiple debridements. 2. PEG tube placement. 3. Diverting colostomy. 4. Endovascular stent secondary to abdominal aortic aneurysm in 2011. HOME MEDICATIONS 1. Aspirin 81 mg per G-tube daily. 2. Sodium bicarbonate 650 mg per G-tube daily. 3. Vitamin C 500 mg per G-tube daily. 4. Fluoxetine 20 mg per G-tube daily. 5. Cordarone 200 mg per G-tube once daily. 6. Lasix 20 mg per G-tube daily. 7. Probiotic 250 mg per G-tube b.i.d. 8. Metoprolol 50 mg per G-tube daily. 9. Combivent inhaler p.r.n. q.4 hours as needed. FAMILY HISTORY Noncontributory secondary to patient's advanced age. SOCIAL HISTORY The patient lives with her son. She has home health. She has a history of remote tobacco abuse, quit smoking five years ago. There is no history of illicit drugs or alcohol. Unit #: [id number] #: [id number] Patient: LEON HERMAN REVIEW OF SYSTEMS Unable to obtain as patient is nonverbal, intubated and sedated on the ventilator. PHYSICAL EXAMINATION GENERAL APPEARANCE: This is a frail 80-year-old -[place] patient who is sedated on the ventilator. She has contractures. VITAL SIGNS: Temperature 99.7, respirations 18, ventilator 40% FIO2, pulse 50s to 60s, blood pressure 80 systolic, now 120s/70s. HEENT: Pupils are equal and reactive. Pharynx - mucous membranes are moist. NECK: Trachea is midline. No lymphadenopathy or thyromegaly. Normal carotid upstrokes. No carotid bruits. CHEST: Clear to auscultation. No adventitious breath sounds, no rales, no rhonchi, no wheezes. CARDIAC: S1, S2. No murmur, gallop or rub. ABDOMEN: Bowel sounds are present. PEG tube is present. Colostomy is present. EXTREMITIES: No edema. Contractures present on the left side. Pulses are weak. DIAGNOSTIC STUDIES LABORATORY: Sodium 139, potassium 4.0, chloride 109, CO2 25, BUN 22, creatinine 0.9, glucose 130, calcium is 8.4, albumin is 1.9. Troponins have been 0.03 and repeat of 0.05. Hemoglobin 7.5 which is down from yesterday. Yesterday was 9.7. Hematocrit 24.1, platelet count 315, WBC 36.8 with a left shift. Urinalysis showed 2+ leukocyte esterase, 1+ protein, 10-25 RBCs, 25-50 WBCs. She currently has a culture that is pending. Two sets of blood cultures have been negative at 24 hours. C. difficile specimen was negative. She is positive for influenzae A. IMAGING: Chest x-ray - endotracheal tube and central venous catheter stable. There are diffuse predominantly lower lobe infiltrates. Repeat x-ray today shows ET-tube in good position. No new infiltrates are seen. Heart and mediastinum are stable. No enlarging pleural effusions are seen. Lower extremity venous Doppler was negative for DVT. CARDIOVASCULAR: EKG shows sinus bradycardia, rate of 54 beats per minute. QTC interval 457 msec. No acute ischemic change. Cannot rule out prior inferior ND. IMPRESSION 1. Sinus bradycardia. 2. Hypotension. 3. Acute respiratory failure, status post intubation. 4. Aspiration pneumonia. 5. Sacral wounds and ischial wounds. 6. Urinary tract infection. 7. Possible osteomyelitis. 8. Acute hypoxic respiratory failure, most likely related to aspiration pneumonia. Unit #: [id number] #: [id number] Patient: LEON HERMAN 9. History of coronary artery disease with medical management. 10. History of intracranial hemorrhage, not on anticoagulation. 11. History of paroxysmal atrial fibrillation, not on anticoagulation secondary to previous intracranial hemorrhage. 12. History of hypertension. 13. Hyperlipidemia. 14. Vascular dementia. 15. Chronic Concepcion catheter. 16. Diverting colostomy for sacral decub. 17. Last ejection fraction was 55% per 2D echo in 05/2014 with mild MR and TR, RVSP of 30 to 40 mmHg, impaired LV relaxation. PLAN The patient was initially admitted for shortness of breath and decreased oxygen saturation. She did decompensate and required mechanical ventilation with transfer to the unit. The patient's lactic acid was initially 2.0. She has been started on antibiotic therapy and infectious disease as well as surgery has been asked to see the patient. There is some concern for osteomyelitis as the patient has large sacral decubitus wound as well as an ischial wound. Again, general surgery has been consulted. At this point, they are doing dressing changes. Infectious disease is also managing. The patient developed atrial fibrillation with RVR and was started on IV amiodarone as well as her normal metoprolol dose. Today, she developed bradycardia. No evidence of high degree AV block was noted or junctional rhythm. Her cardiac enzymes have been negative. Her EKG shows no evidence of any ischemia. The patient was also noted to be hypotensive with a systolic blood pressure in the 80s as well as decreased urinary output. She has been given a fluid bolus, started on IV dopamine. At this time, her blood pressures have rebounded. They are in the 120s/70s to 80s. Her pulse is in the 70s to 80s. Will continue with dopamine drip for now and her amiodarone has been discontinued and her metoprolol has been stopped. Will check TSH level as well as free T3 and T4 secondary to patient has been on amiodarone to make sure there is no amiodarone-induced hypothyroidism. The patient is a DNR. This has been discussed with her son. For now, will continue supportive therapy. Further recommendations pending Dr. Briscoe's assessment. Dictated by... Vera Marks A.P.R.N. for Marielena Briscoe M.D. LMW/df TD: 05/23/2016 07:38 JOB #: [id number] CONSULTATION REPORT Page 1 of 1 X Vera Marks APRN X CONSULTATION REPORT
--- NOTE | ~2016-05-19 | DS ---
Unit #: [id number] #: [id number] Patient: LEON HERMAN [id number] [address] [place], [place] [address] [id number] I MR#: [id number] NAME: LEON HERMAN ROOM: 221 Age: Sex: F Admission Date: 05/20/2016 : 1935 Discharge Date: Attending Physician: Gonzalo Good M.D. Primary Care Physician: Narinder Kay M.D. DISCHARGE SUMMARY ADDENDUM Kindly note, there is a Discharge Summary dictated by Dr. Callahan on the . This is an addendum to the Discharge Summary. In the next few days of the hospital course, her respiratory failure continued to worsen. She was still intubated, and she was on a ventilator. Dr. Miles was also consulted for sepsis. Her antibiotics were changed, and in the hospital course, the family decided not to do any trach and wanted to withdraw the care. Patient is now made comfort care measures. She was extubated two days ago. Hospice was consulted. Hospice spoke with the family including the son who is her power of managing attorney. Patient will be transferred to inpatient Hospice possibly today once a bed is available. PHYSICAL EXAMINATION GENERAL: Patient is alert and nonverbal. Denies any problems. VITAL SIGNS: Temperature 97.9, pulse rate 69, respiratory rate 31, and blood pressure 111/50. HEENT: Normocephalic and atraumatic. CHEST: Bilateral equal air entry, minimal rhonchi. HEART: S1 and S2, regular rate and rhythm. ABDOMEN: Soft and nontender. EXTREMITIES: No edema. DISPOSITION She will be transferred to inpatient Hospice today. DISCHARGE MEDICATIONS 1. Robinul 0.4 mg IV q.3 p.r.n. for oral secretions. 2. Ativan 1-2 mg q.1 hour p.r.n. for agitation. 3. Morphine 1-4 mg p.r.n. for pain. Total time spent in her care 28 minutes. Dictated by... Gonzalo Good M.D. PS/am TD: 06/04/2016 15:00 JOB #: [id number] Unit #: [id number] #: [id number] Patient: LEON HERMAN DISCHARGE SUMMARY Page 1 of 1 X X DISCHARGE SUMMARY
--- NOTE | ~2016-05-19 | CR72 ---
[facility] A Service of [facility] RADIOLOGY TEXT RESULTS PATIENT: LEON HERMAN LOCATION: [place] [id number] : 34 UNIT #: [id number] AGE: [address]: Navarro Gandhi MD SEX: F ORDER DR: [id number] [facility] [address] [place], [place] [address] [id number] I MR#: [id number] Acc #: [id number] NAME: LEON HERMAN : 1935 SEX: F STUDY DATE/TIME: 05/28/2016 4:21 UNIT: [facility] ROOM: [facility] STUDY DESCRIPTION: CR Chest Single View Portable Attending Physician: Navarro Gandhi M.D. Ordering Physician: Lissett Smith M.D. Primary Care Physician: Narinder Kay M.D. MEDICAL IMAGING REPORT This report is preliminary unless electronic signature is present EXAM Portable chest INDICATIONS Respiratory failure. PROCEDURE Frontal view chest. COMPARISON 05/27/2016 FINDINGS The right effusion is stable, small left effusion. Stable heart size and position of the ET tube. IMPRESSION Stable. Dictated by... South Haddad M.D. THIS IS AN ELECTRONICALLY VERIFIED REPORT South Haddad M.D. at 05/28/2016 10:24 PM ROSINA/daniella TD: 05/28/2016 06:16 JOB #: [id number] MEDICAL IMAGING REPORT Page 1 of 1 COPY
--- NOTE | ~2016-05-19 | US84 ---
[id number] [facility] [address] [place], [place] [address] [id number] I MR#: [id number] Acc #: [id number] NAME: LEON HERMAN : 1935 SEX: F STUDY DATE/TIME: 05/20/2016 15:22 UNIT: [facility]U ROOM: [facility] STUDY DESCRIPTION: US LE Veins Complete Peter Stdy Attending Physician: Dedra Callahan M.D. Ordering Physician: Eve Jeffery M.D. Primary Care Physician: Narinder Kay M.D. MEDICAL IMAGING REPORT This report is preliminary unless electronic signature is present EXAM Lower extremity venous ultrasound bilateral complete 05/20/2016 HISTORY Evaluate for DVT. Short of air for 2 days. Chronic kidney disease, hypertension, decreased O2 respiratory failure upon admission. TECHNIQUE Venous ultrasound examination of both lower extremities was performed using grayscale, spectral Doppler and color flow Doppler imaging. FINDINGS The examination is negative. There is no evidence of deep venous thrombus from the groin to the lower calf bilaterally. Visualized greater saphenous veins are also patent. IMPRESSION Negative examination. No evidence of lower extremity deep venous thrombosis. Dictated by... Taco Warren M.D. THIS IS AN ELECTRONICALLY VERIFIED REPORT Taco Warren M.D. at 05/21/2016 5:13 PM ZARA/jacqueline TD: 05/20/2016 19:53 JOB #: [id number] MEDICAL IMAGING REPORT Page 1 of 1 COPY
--- NOTE | ~2016-05-19 | CR72 ---
[facility] A Service of [facility] & [facility] RADIOLOGY TEXT RESULTS PATIENT: LEON HERMAN LOCATION: [place] [id number] : 34 UNIT #: [id number] AGE: [address]: Navarro Gandhi MD SEX: F ORDER DR: [id number] [facility] [address] [place], [place] [address] [id number] I MR#: [id number] Acc #: [id number] NAME: LEON HERMAN : 1935 SEX: F STUDY DATE/TIME: 05/25/2016 2:15 UNIT: [facility] ROOM: [facility] STUDY DESCRIPTION: CR Chest Single View Portable Attending Physician: Navarro Gandhi M.D. Ordering Physician: Lissett Smith M.D. Primary Care Physician: Narinder Kay M.D. MEDICAL IMAGING REPORT This report is preliminary unless electronic signature is present EXAM Portable chest, 05/25/2016. HISTORY Septic shock. Ventilator for 5 days. COMPARISON Chest, 05/24/2016. FINDINGS Frontal chest demonstrates tubes and lines in stable position. No pneumothorax. Bibasilar infiltrates are stable. Heart size and mediastinum are stable. IMPRESSION 1. Tubes and lines are stable. No pneumothorax. 2. No change in bibasilar pulmonary infiltrates. Dictated by... Sky Tang M.D. THIS IS AN ELECTRONICALLY VERIFIED REPORT Sky Tang M.D. at 05/26/2016 4:38 PM MK/matt TD: 05/25/2016 16:52 JOB #: [id number] MEDICAL IMAGING REPORT Page 1 of 1 COPY
--- NOTE | ~2016-05-19 | EKG ---
PATIENT: LEON HERMAN UNIT #: [id number] Ventricular Rate: 149 BPM Atrial Rate: 156 BPM QRS Duration: 82 ms Q-T Interval: 244 ms QTC Calculation(Bezet): 384 ms Calculated R [place]: 50 degrees Calculated T [place]: -99 degrees Diagnosis Line: Atrial fibrillation with rapid ventricular Diagnosis Line: response Diagnosis Line: Low voltage QRS Diagnosis Line: Marked ST abnormality, possible anterior Diagnosis Line: subendocardial injury Diagnosis Line: Abnormal ECG Diagnosis Line: When compared with ECG of 19-MAY-2016 22:43, Diagnosis Line: (unconfirmed) Diagnosis Line: Significant changes have occurred Diagnosis Line: Confirmed by AGAPITO HERNANDES MD ([id number]) on 05/21/2016 Diagnosis Line: 9:25:08 PM INTERPRETING MD: GRETA FRIAS
--- NOTE | ~2016-05-19 | CR72 ---
[facility] A Service of [facility] RADIOLOGY TEXT RESULTS PATIENT: LEON HERMAN LOCATION: [facility] [id number] : [birth year] UNIT #: [id number] AGE: [address]: Dedra Callahan MD SEX: F ORDER DR: [id number] [facility] [address] [place], [place] [address] [id number] I MR#: [id number] Acc #: [id number] NAME: LEON HERMAN : 1935 SEX: F STUDY DATE/TIME: 05/21/2016 7:59 UNIT: [address] ROOM: [facility] STUDY DESCRIPTION: CR Chest Single View Portable Attending Physician: Dedra Callahan M.D. Ordering Physician: Dedra Callahan M.D. Primary Care Physician: Narinder Kay M.D. MEDICAL IMAGING REPORT This report is preliminary unless electronic signature is present EXAM Portable chest INDICATIONS 80-year-old female with decreased oxygen saturations today. COMPARISON: Comparison with 05/19/16 FINDINGS There has been slight worsening of left basilar infiltrate. Right basilar infiltrates are stable. Heart size stable. IMPRESSION Slight worsening of infiltrate within the left base. Dictated by... Don Negrete M.D. THIS IS AN ELECTRONICALLY VERIFIED REPORT Don Negrete M.D. at 05/21/2016 4:28 PM GÓMEZ/samira TD: 05/21/2016 10:01 JOB #: [id number] MEDICAL IMAGING REPORT Page 1 of 1 COPY
--- NOTE | ~2016-05-19 | CR72 ---
[facility] A Service of [facility] & [facility] RADIOLOGY TEXT RESULTS PATIENT: LEON HERMAN LOCATION: [place] [id number] : 34 UNIT #: [id number] AGE: [address]: Navarro Gandhi MD SEX: F ORDER DR: [id number] [facility] [address] [place], [place] [address] [id number] I MR#: [id number] Acc #: [id number] NAME: LEON HERMAN : 1935 SEX: F STUDY DATE/TIME: 05/29/2016 5:46 UNIT: [facility] ROOM: [facility] STUDY DESCRIPTION: CR Chest Single View Portable Attending Physician: Navarro Gandhi M.D. Ordering Physician: Lissett Smith M.D. Primary Care Physician: Narinder Kay M.D. MEDICAL IMAGING REPORT This report is preliminary unless electronic signature is present EXAM Portable chest. HISTORY Pneumonia. Septic shock. Positive flu. FINDINGS AP portable chest is compared with 05/28/2016. ET tube and right subclavian line remain in good position. Cardiomegaly is stable. Small effusion right greater than left are stable as well. There is some vascular congestion. Infiltrate or atelectasis in the bases, also not significantly changed. No pneumothorax. Dictated by... Emory Arreaga Jr., M.D. THIS IS AN ELECTRONICALLY VERIFIED REPORT Emory Arreaga Jr., M.D. at 05/29/2016 10:02 AM GORDO/daniella TD: 05/29/2016 07:26 JOB #: [id number] MEDICAL IMAGING REPORT Page 1 of 1 COPY
--- NOTE | ~2016-05-19 | CR4 ---
[facility] A Service of [facility] & [facility] RADIOLOGY TEXT RESULTS PATIENT: LEON HERMAN LOCATION: [address] : [birth year] UNIT #: [id number] AGE: [address]: Dedra Callahan MD SEX: F ORDER DR: [id number] [facility] [address] [facility] [place], [place] [address] [id number] MR#: [id number] #: [id number] NAME: LEON HERMAN : 1935 SEX: F STUDY DATE/TIME: 05/23/2016 13:23 UNIT: [facility] ROOM: [facility] STUDY DESCRIPTION: CR Abdomen Flat Upright or Dec Attending Physician: Dedra Callahan M.D. Ordering Physician: Dedra Callahan M.D. Primary Care Physician: Narinder Kay M.D. MEDICAL IMAGING REPORT This report is preliminary unless electronic signature is present EXAM Abdomen, flat and upright. DATE OF EXAM 05/23/2016 HISTORY PEG tube leaking today. FINDINGS Flat and upright views of the abdomen demonstrate no bowel dilatation or displacement or free air. The balloon at the tip of the gastrostomy tube does not appear to be inflated, as it was previously inflated on 03/22/2016. The gastrostomy tube tip overlies the mid stomach in the midline upper abdomen. Surgical clips in the right upper quadrant. Aortobiiliac stent graft. 5 mm opacity in the right pelvis could be ingested opaque foreign body. Patchy infiltrate or atelectasis in both lung bases. Small right pleural effusion. IMPRESSION 1. No bowel dilatation. 2. The balloon at the tip of the gastrostomy tube does not appear to be inflated as it was previously inflated on 03/22/2016. 3. No bowel displacement or free air. 4. Patchy bibasilar infiltrates or atelectasis. Dictated by... Michael Dhillon M.D. THIS IS AN ELECTRONICALLY VERIFIED REPORT Michael Dhillon M.D. at 05/23/2016 11:[address] [facility] A Service of [facility] & [facility] RADIOLOGY TEXT RESULTS PATIENT: LEON HERMAN LOCATION: [address] : [birth year] UNIT #: [id number] AGE: [address]: Dedra Callahan MD SEX: F ORDER DR: LALITA/samuel TD: 05/23/2016 19:21 JOB #: [id number] MEDICAL IMAGING REPORT Page 1 of 1 COPY
[2016-05-19 22:40] LABS: BASOPHIL% 0.2 % (0-2.5); DIFF IND NO; EOSINOPHIL# 0.1 X10e3 (0-0.7); EOSINOPHIL% 0.7 % (0.0-7.0); HEMOGLOBIN 9.7 gm/dL (12.0-16.0); LYMPHOCYTE# 1.9 X10e3 (1.0-3.5); LYMPHOCYTE% 17.9 % (17.0-45.0); MEAN CORPUSCULAR HEMOGLOBIN 27.5 PG (28-34); MEAN CORPUSCULAR HGB CONC 32.4 g/dL (30-36); MONOCYTE# 0.6 X10e3 (0-1.0); MONOCYTE% 5.5 % (3.0-12.0); NEUTROPHIL# 8.2 X10e3 (1.5-7.1); NEUTROPHIL% 75.7 % (40-75); PLATELET COUNT 395 X10e3 (140-420); RED BLOOD COUNT 3.53 X10e (3.90-5.30); RED CELL DISTRIBUTION WIDTH 20.4 % (11.0-15.5); WHITE BLOOD COUNT 10.8 X10e3 (4.0-10.5)
[2016-05-19 23:12] LABS: ALBUMIN SERUM 2.8 g/dL (3.5-5.0); BILIRUBIN, DIRECT 0.2 mg/dL (0.0-0.2); BILIRUBIN,INDIRECT 0.1 mg/dL (0.0-0.9); BILIRUBIN,TOTAL 0.3 mg/dL (0.2-2.0); CALCIUM SERUM 9.3 mg/dL (8.4-10.2); GLOM FILT RATE Estimated 61.2 mL/min (>60); POTASSIUM 4.3 mmol/L (3.5-5.1); PROTEIN TOTAL SERUM 7.2 g/dL (6.0-8.3)
[2016-05-19 23:14] LABS: POC - CKMB 1.3 ng/mL (0.0-7.9); POC - TROPONIN <0.05 ng/mL (<=0.05)
[~2016-05-19 23:21] MED LIST: ACETAMINOP325 MG/10. GT; AFRIN NASAL SPR15 ML INH; AMIODARONE GT; ASPIRIN81 M2 GT; ATRAC-TAIN142 GM EXT; BACTROBAN15 GM TOP; CIPRO250 MG PO; CLARITIN10 M2 PO; CLOBETASOL 0.0560 GM TOP; CLOPIDOGREL75 MG GT; COMBIVENT U/D3 M1 INH; CORDARONE200 M1 PO; DAKIN'S MODIF1000 ML EXT; DAKIN'S473 ML; DOC-Q-LACE100 MG PO; ECOTRIN325 MG PO; ELIQUIS2.5 MG PO; FLUOXETINE HCL20 M1 PO; HYDROCHLOROTH12.5 MG PO; HYDROCODONE-A1 UDTA4 PO; LASIX20 MG GT; LEVAQUIN250 MG GT; LORTAB ELIXIR GT; MAGNESIUM400 M1 GT; MEDROL DOSEPAK4 MG DOB; MEGESTROL ACETA20 MG PO; METOCLOPRAMIDE H5 MG GT; METOPROLOL TAR25 MG PO; METOPROLOL TART25 MG GT; METOPROLOL TART25 MG PO; METRONIDAZOLE250 MG GT; MILK OF MAGNESIA GT; MUCUS RELIEF600 M1; MY FAVORITE MU237 ML GT; NORVASC10 MG PO; NORVASC2.5 MG PO; OMEPRAZOLE20 M2 PO; PAIN RELIEF325 M1 GT; POTASSIUM CHLO10 ME1 PO; PROBIOTIC250 MG GT; PROZAC10 MG PO; SANTYL15 G1 TOP; SELFEMRA20 MG PO; SIMVASTATIN20 MG PO; SIMVASTATIN40 MG GT; SOD BICARBONATE GT; SYMBICORT INH; TYLENOL #3 PO; VITAMIN C500 M2 GT; ZINC SULFATE220 M1 GT; ZYVOX600 MG GT
[2016-05-19] MEDS ORDERED: METOPROLOL TART25 MG PO (23:22)
[2016-05-19] MEDS ORDERED: COMBIVENT RESPIM4 GM INH (23:24)
[2016-05-20 03:29] LABS: BASOPHIL% 0.1 % (0-2.5); HEMATOCRIT 30.4 % (35.0-45.0); HEMOGLOBIN 9.5 gm/dL (12.0-16.0); LYMPHOCYTE# 0.6 X10e3 (1.0-3.5); LYMPHOCYTE% 3.8 % (17.0-45.0); MEAN CELL VOLUME 86.3 FL (83-96); MEAN CORPUSCULAR HEMOGLOBIN 27.1 PG (28-34); MEAN CORPUSCULAR HGB CONC 31.4 g/dL (30-36); MEAN PLATELET VOLUME 7.2 FL (6.5-11.5); MONOCYTE# 0.1 X10e3 (0-1.0); MONOCYTE% 0.8 % (3.0-12.0); NEUTROPHIL# 14.3 X10e3 (1.5-7.1); NEUTROPHIL% 95.3 % (40-75); PLATELET COUNT 383 X10e3 (140-420); RED BLOOD COUNT 3.52 X10e (3.90-5.30); RED CELL DISTRIBUTION WIDTH 20.2 % (11.0-15.5)
[2016-05-20 03:32] LABS: DIFF IND NO
[2016-05-20 03:59] LABS: CALCIUM SERUM 9.1 mg/dL (8.4-10.2); GLOM FILT RATE Estimated 61.2 mL/min (>60); POTASSIUM 4.3 mmol/L (3.5-5.1)
[2016-05-20] MEDS ORDERED: PANTOPRAZOLE SO40 MG PO (05:03)
[2016-05-20] MEDS ORDERED: SIMVASTATIN40 MG PO (05:04)
[2016-05-21 05:34] LABS: HEMATOCRIT 27.9 % (35.0-45.0); HEMOGLOBIN 8.8 gm/dL (12.0-16.0); MEAN CELL VOLUME 84.8 FL (83-96); MEAN CORPUSCULAR HEMOGLOBIN 26.7 PG (28-34); MEAN CORPUSCULAR HGB CONC 31.5 g/dL (30-36); MEAN PLATELET VOLUME 7.4 FL (6.5-11.5); RED BLOOD COUNT 3.29 X10e (3.90-5.30); RED CELL DISTRIBUTION WIDTH 20.6 % (11.0-15.5)
[2016-05-21 06:26] LABS: ALBUMIN SERUM 2.5 g/dL (3.5-5.0); BILIRUBIN,TOTAL 0.5 mg/dL (0.2-2.0); BUN/CREATININE RATIO 32.5; CALCIUM SERUM 8.8 mg/dL (8.4-10.2); CREATININE SERUM 0.8 mg/dL (0.6-1.4); GLOM FILT RATE Estimated 80.2 mL/min (>60); POTASSIUM 4.1 mmol/L (3.5-5.1); PROTEIN TOTAL SERUM 6.4 g/dL (6.0-8.3)
[2016-05-21 16:20] LABS: ARTERIAL BLD GAS O2 SATURATION 89.6 % (90.0-100.0); ARTERIAL BLOOD GAS HCO3 28.2 mmol/L; ARTERIAL BLOOD GAS MET HB 0.6 %sat (0.0-2.0); ARTERIAL BLOOD GAS PCO2 49.8 mmHg (35.0-45.0); ARTERIAL BLOOD GAS pH 7.362 (7.350-7.450)
[2016-05-21 16:21] LABS: ARTERIAL BLOOD GAS ART SITE RIGHT RADIAL; ARTERIAL BLOOD GAS DELIVERY NON REBREATHER MASK; ARTERIAL BLOOD GAS PO2 61.7 mmHg (80.0-100); ARTERIAL DRAW? YES
[2016-05-21 19:23] LABS: ARTERIAL BLD GAS O2 SATURATION 96.5 % (90.0-100.0); ARTERIAL BLOOD GAS CARBOXY HB 0.5 %sat (0.0-9.0); ARTERIAL BLOOD GAS HCO3 25.7 mmol/L; ARTERIAL BLOOD GAS MET HB 0.6 %sat (0.0-2.0); ARTERIAL BLOOD GAS PCO2 36.5 mmHg (35.0-45.0); ARTERIAL BLOOD GAS PO2 88.2 mmHg (80.0-100); ARTERIAL BLOOD GAS pH 7.455 (7.350-7.450)
[2016-05-21 19:24] LABS: ARTERIAL BLOOD GAS ALLEN TEST NORMAL; ARTERIAL BLOOD GAS ART SITE LEFT RADIAL; ARTERIAL BLOOD GAS DELIVERY VENT; ARTERIAL BLOOD GAS VENT MODE AC; ARTERIAL DRAW? YES
[2016-05-21 21:16] LABS: HEMATOCRIT 25.7 % (35.0-45.0); LYMPHOCYTE# 0.8 X10e3 (1.0-3.5); LYMPHOCYTE% 1.9 % (17.0-45.0); MEAN CORPUSCULAR HEMOGLOBIN 26.6 PG (28-34); MEAN CORPUSCULAR HGB CONC 30.9 g/dL (30-36); MONOCYTE# 0.9 X10e3 (0-1.0); NEUTROPHIL# 42.2 X10e3 (1.5-7.1); NEUTROPHIL% 96.1 % (40-75); PLATELET COUNT 323 X10e3 (140-420); RED BLOOD COUNT 2.99 X10e (3.90-5.30); RED CELL DISTRIBUTION WIDTH 20.2 % (11.0-15.5); WHITE BLOOD COUNT 43.9 X10e3 (4.0-10.5)
[2016-05-21 21:17] LABS: DIFF IND YES
[2016-05-21 21:31] LABS: BILIRUBIN,TOTAL 0.9 mg/dL (0.2-2.0); BUN/CREATININE RATIO 26.66; CREATININE SERUM 0.9 mg/dL (0.6-1.4); GLOM FILT RATE Estimated 69.5 mL/min (>60); MAGNESIUM 1.4 mg/dL (1.6-3.0); PHOSPHOROUS 2.9 mg/dL (2.5-4.6); POTASSIUM 3.3 mmol/L (3.5-5.1); PROTEIN TOTAL SERUM 5.3 g/dL (6.0-8.3)
[2016-05-21 22:19] LABS: PLATELET ESTIMATE NORMAL (NORMAL)
[2016-05-21 22:20] LABS: HYPERSEGMENTED POLYS PRESENT; HYPOCHROMIA MOD; TOXIC GRANULATION SL
[2016-05-21 22:32] LABS: URINE APPEARANCE CLOUDY; URINE BILIRUBIN NEG (NEG); URINE BLOOD TRACE (NEG); URINE COLOR YELLOW; URINE GLUCOSE NEG (NEG); URINE KETONE NEG (NEG); URINE LEUKOCYTE ESTERASE 2+ (NEG); URINE NITRATE NEG (NEG); URINE PROTEIN 1+ (NEG); URINE UROBILINOGEN 0.2 MG/DL (NEG)
[2016-05-21 22:36] LABS: CULTURE INDICATED? YES; URINE BACTERIA AUWI NEG (NEGATIVE); URINE SQUAMOUS EPITHELIAL CELL MOD /[HPF]
[2016-05-21 22:51] LABS: URINE CRYSTALS CALCIUM OXALATE /[HPF]
[2016-05-22 01:51] LABS: INFLUENZA A POS (NEG)
[2016-05-22 01:52] LABS: INFLUENZA B NEG (NEG)
[2016-05-22 04:24] LABS: ARTERIAL BLOOD GAS CARBOXY HB 0.2 %sat (0.0-9.0); ARTERIAL BLOOD GAS HCO3 24.1 mmol/L; ARTERIAL BLOOD GAS MET HB 0.5 %sat (0.0-2.0); ARTERIAL BLOOD GAS PCO2 39.6 mmHg (35.0-45.0); ARTERIAL BLOOD GAS pH 7.392 (7.350-7.450)
[2016-05-22 04:38] LABS: ARTERIAL BLOOD GAS ALLEN TEST NORMAL; ARTERIAL BLOOD GAS ART SITE RIGHT RADIAL; ARTERIAL BLOOD GAS DELIVERY VENT; ARTERIAL BLOOD GAS VENT MODE AC; ARTERIAL DRAW? YES
[2016-05-22 05:25] LABS: BASOPHIL% 0.1 % (0-2.5); EOSINOPHIL% 0.1 % (0.0-7.0); HEMATOCRIT 24.1 % (35.0-45.0); HEMOGLOBIN 7.5 gm/dL (12.0-16.0); LYMPHOCYTE# 1.3 X10e3 (1.0-3.5); LYMPHOCYTE% 3.6 % (17.0-45.0); MEAN CELL VOLUME 85.7 FL (83-96); MEAN CORPUSCULAR HEMOGLOBIN 26.8 PG (28-34); MEAN CORPUSCULAR HGB CONC 31.3 g/dL (30-36); MONOCYTE# 0.8 X10e3 (0-1.0); MONOCYTE% 2.2 % (3.0-12.0); NEUTROPHIL# 34.7 X10e3 (1.5-7.1); PLATELET COUNT 315 X10e3 (140-420); RED BLOOD COUNT 2.81 X10e (3.90-5.30); RED CELL DISTRIBUTION WIDTH 19.8 % (11.0-15.5); WHITE BLOOD COUNT 36.8 X10e3 (4.0-10.5)
[2016-05-22 05:28] LABS: DIFF IND NO
[2016-05-22 06:27] LABS: ALBUMIN SERUM 1.9 g/dL (3.5-5.0); BILIRUBIN,TOTAL 0.5 mg/dL (0.2-2.0); BUN/CREATININE RATIO 24.44; CALCIUM SERUM 8.4 mg/dL (8.4-10.2); CREATININE SERUM 0.9 mg/dL (0.6-1.4); GLOM FILT RATE Estimated 69.5 mL/min (>60); PROTEIN TOTAL SERUM 4.8 g/dL (6.0-8.3)
[2016-05-22 06:29] LABS: LEGIONELLA AG URINE NEG (NEG)
[2016-05-22 12:43] LABS: ARTERIAL BLD GAS O2 SATURATION 79.5 % (90.0-100.0); ARTERIAL BLOOD GAS CARBOXY HB 1.4 %sat (0.0-9.0); ARTERIAL BLOOD GAS HCO3 23.6 mmol/L; ARTERIAL BLOOD GAS MET HB 0.6 %sat (0.0-2.0); ARTERIAL BLOOD GAS PCO2 42.8 mmHg (35.0-45.0); ARTERIAL BLOOD GAS pH 7.349 (7.350-7.450)
[2016-05-22 12:45] LABS: ARTERIAL BLOOD GAS ALLEN TEST NORMAL; ARTERIAL BLOOD GAS ART SITE RIGHT RADIAL; ARTERIAL BLOOD GAS DELIVERY VENT; ARTERIAL BLOOD GAS PO2 47.9 mmHg (80.0-100); ARTERIAL BLOOD GAS VENT MODE A/C; ARTERIAL DRAW? YES
[2016-05-22 14:44] LABS: ARTERIAL BLD GAS O2 SATURATION 99.1 % (90.0-100.0); ARTERIAL BLOOD GAS CARBOXY HB 0.4 %sat (0.0-9.0); ARTERIAL BLOOD GAS HCO3 22.3 mmol/L; ARTERIAL BLOOD GAS MET HB 0.6 %sat (0.0-2.0); ARTERIAL BLOOD GAS PCO2 41.6 mmHg (35.0-45.0); ARTERIAL BLOOD GAS pH 7.338 (7.350-7.450)
[2016-05-22 14:47] LABS: ARTERIAL BLOOD GAS ALLEN TEST NORMAL; ARTERIAL BLOOD GAS ART SITE RIGHT RADIAL; ARTERIAL BLOOD GAS DELIVERY VENT; ARTERIAL BLOOD GAS VENT MODE A/C; ARTERIAL DRAW? YES
[2016-05-22 16:57] LABS: THYROID STIMULATING HORMONE 0.11 uIU/ml (0.34-5.60)
[2016-05-22 17:02] LABS: FREE T3 3.8 pg/mL (2.5-3.9)
[2016-05-22 17:03] LABS: FREE THYROXIN (T4) 3.41 ng/dL (0.58-1.64)
[2016-05-23 04:10] LABS: ARTERIAL BLD GAS O2 SATURATION 98.2 % (90.0-100.0); ARTERIAL BLOOD GAS CARBOXY HB 0.3 %sat (0.0-9.0); ARTERIAL BLOOD GAS HCO3 20.8 mmol/L; ARTERIAL BLOOD GAS MET HB 0.5 %sat (0.0-2.0); ARTERIAL BLOOD GAS PCO2 42.6 mmHg (35.0-45.0); ARTERIAL BLOOD GAS pH 7.298 (7.350-7.450)
[2016-05-23 04:26] LABS: ARTERIAL BLOOD GAS ALLEN TEST NORMAL; ARTERIAL BLOOD GAS ART SITE RIGHT RADIAL; ARTERIAL BLOOD GAS DELIVERY VENT; ARTERIAL BLOOD GAS VENT MODE AC; ARTERIAL DRAW? YES
[2016-05-23 06:08] LABS: HEMATOCRIT 23.3 % (35.0-45.0); HEMOGLOBIN 7.4 gm/dL (12.0-16.0); LYMPHOCYTE# 0.5 X10e3 (1.0-3.5); LYMPHOCYTE% 1.7 % (17.0-45.0); MEAN CORPUSCULAR HEMOGLOBIN 27.3 PG (28-34); MEAN CORPUSCULAR HGB CONC 31.8 g/dL (30-36); MONOCYTE# 0.2 X10e3 (0-1.0); MONOCYTE% 0.8 % (3.0-12.0); NEUTROPHIL# 25.6 X10e3 (1.5-7.1); NEUTROPHIL% 97.5 % (40-75); PLATELET COUNT 333 X10e3 (140-420); RED BLOOD COUNT 2.71 X10e (3.90-5.30); RED CELL DISTRIBUTION WIDTH 20.3 % (11.0-15.5); WHITE BLOOD COUNT 26.3 X10e3 (4.0-10.5)
[2016-05-23 06:14] LABS: DIFF IND YES
[2016-05-23 06:26] LABS: BILIRUBIN,TOTAL 0.5 mg/dL (0.2-2.0); CALCIUM SERUM 8.4 mg/dL (8.4-10.2); CREATININE SERUM 0.8 mg/dL (0.6-1.4); GLOM FILT RATE Estimated 80.2 mL/min (>60); MAGNESIUM 1.7 mg/dL (1.6-3.0); POTASSIUM 3.6 mmol/L (3.5-5.1); PROTEIN TOTAL SERUM 5.5 g/dL (6.0-8.3)
[2016-05-23 08:36] LABS: ANISOCYTOSIS SL; BURR CELLS PRESENT; HYPOCHROMIA SL; OVALOCYTES PRESENT; PLATELET ESTIMATE NORMAL (NORMAL); SCHISTOCYTES PRESENT
[2016-05-23 15:50] LABS: BODY FLUID APPEARANCE TURBID; BODY FLUID SOURCE BRONCHIAL LAVAGE
[2016-05-24 04:32] LABS: ARTERIAL BLD GAS O2 SATURATION 94.1 % (90.0-100.0); ARTERIAL BLOOD GAS CARBOXY HB 0.8 %sat (0.0-9.0); ARTERIAL BLOOD GAS HCO3 23.4 mmol/L; ARTERIAL BLOOD GAS MET HB 0.8 %sat (0.0-2.0); ARTERIAL BLOOD GAS PCO2 45.8 mmHg (35.0-45.0); ARTERIAL BLOOD GAS pH 7.317 (7.350-7.450)
[2016-05-24 04:54] LABS: ARTERIAL BLOOD GAS ALLEN TEST NORMAL; ARTERIAL BLOOD GAS ART SITE RIGHT RADIAL; ARTERIAL BLOOD GAS DELIVERY VENT; ARTERIAL BLOOD GAS PO2 77.3 mmHg (80.0-100); ARTERIAL BLOOD GAS VENT MODE AC; ARTERIAL DRAW? YES
[2016-05-24 06:01] LABS: BASOPHIL% 0.1 % (0-2.5); HEMATOCRIT 21.2 % (35.0-45.0); LYMPHOCYTE# 0.9 X10e3 (1.0-3.5); LYMPHOCYTE% 3.8 % (17.0-45.0); MEAN CELL VOLUME 85.7 FL (83-96); MEAN CORPUSCULAR HEMOGLOBIN 26.8 PG (28-34); MEAN CORPUSCULAR HGB CONC 31.3 g/dL (30-36); MONOCYTE# 0.7 X10e3 (0-1.0); MONOCYTE% 3.2 % (3.0-12.0); NEUTROPHIL# 22.1 X10e3 (1.5-7.1); NEUTROPHIL% 92.9 % (40-75); PLATELET COUNT 327 X10e3 (140-420); RED BLOOD COUNT 2.47 X10e (3.90-5.30); RED CELL DISTRIBUTION WIDTH 20.5 % (11.0-15.5); WHITE BLOOD COUNT 23.7 X10e3 (4.0-10.5)
[2016-05-24 06:03] LABS: DIFF IND NO; HEMOGLOBIN 6.6 gm/dL (12.0-16.0)
[2016-05-24 06:51] LABS: ALBUMIN SERUM 1.9 g/dL (3.5-5.0); BILIRUBIN,TOTAL 0.6 mg/dL (0.2-2.0); CALCIUM SERUM 8.6 mg/dL (8.4-10.2); DIGOXIN (LANOXIN) 0.9 ng/ml (1.0-2.0); GLOM FILT RATE Estimated 61.2 mL/min (>60); MAGNESIUM 2.1 mg/dL (1.6-3.0); POTASSIUM 3.4 mmol/L (3.5-5.1); PROTEIN TOTAL SERUM 4.8 g/dL (6.0-8.3)
[2016-05-25 04:41] LABS: ARTERIAL BLD GAS O2 SATURATION 99.4 % (90.0-100.0); ARTERIAL BLOOD GAS CARBOXY HB 0.9 %sat (0.0-9.0); ARTERIAL BLOOD GAS MET HB 0.7 %sat (0.0-2.0); ARTERIAL BLOOD GAS PCO2 49.6 mmHg (35.0-45.0); ARTERIAL BLOOD GAS pH 7.418 (7.350-7.450); ARTERIAL DRAW? YES
[2016-05-25 04:42] LABS: ARTERIAL BLOOD GAS ALLEN TEST NORMAL; ARTERIAL BLOOD GAS ART SITE RIGHT RADIAL; ARTERIAL BLOOD GAS DELIVERY VENT; ARTERIAL BLOOD GAS VENT MODE AC
[2016-05-25 06:00] LABS: BASOPHIL% 0.1 % (0-2.5); EOSINOPHIL# 0.1 X10e3 (0-0.7); EOSINOPHIL% 0.7 % (0.0-7.0); HEMATOCRIT 28.3 % (35.0-45.0); LYMPHOCYTE# 1.3 X10e3 (1.0-3.5); LYMPHOCYTE% 9.6 % (17.0-45.0); MEAN CELL VOLUME 84.5 FL (83-96); MEAN CORPUSCULAR HEMOGLOBIN 26.8 PG (28-34); MEAN CORPUSCULAR HGB CONC 31.7 g/dL (30-36); MONOCYTE# 0.7 X10e3 (0-1.0); MONOCYTE% 5.3 % (3.0-12.0); NEUTROPHIL# 11.3 X10e3 (1.5-7.1); NEUTROPHIL% 84.3 % (40-75); PLATELET COUNT 292 X10e3 (140-420); RED BLOOD COUNT 3.35 X10e (3.90-5.30); RED CELL DISTRIBUTION WIDTH 18.4 % (11.0-15.5); WHITE BLOOD COUNT 13.4 X10e3 (4.0-10.5)
[2016-05-25 06:02] LABS: DIFF IND NO
[2016-05-25 07:08] LABS: ALBUMIN SERUM 1.9 g/dL (3.5-5.0); CALCIUM SERUM 8.4 mg/dL (8.4-10.2); CREATININE SERUM 0.9 mg/dL (0.6-1.4); GLOM FILT RATE Estimated 69.5 mL/min (>60); MAGNESIUM 1.5 mg/dL (1.6-3.0); PHOSPHOROUS 2.6 mg/dL (2.5-4.6); POTASSIUM 3.5 mmol/L (3.5-5.1); PREALBUMIN 9.8 mg/dL (17.0-42.0)
[2016-05-26 04:26] LABS: ARTERIAL BLD GAS O2 SATURATION 97.9 % (90.0-100.0); ARTERIAL BLOOD GAS CARBOXY HB 0.9 %sat (0.0-9.0); ARTERIAL BLOOD GAS HCO3 36.1 mmol/L; ARTERIAL BLOOD GAS MET HB 0.8 %sat (0.0-2.0); ARTERIAL BLOOD GAS pH 7.466 (7.350-7.450)
[2016-05-26 04:37] LABS: ARTERIAL BLOOD GAS ALLEN TEST NORMAL; ARTERIAL BLOOD GAS ART SITE RIGHT RADIAL; ARTERIAL BLOOD GAS DELIVERY VENT; ARTERIAL BLOOD GAS PCO2 50.1 mmHg (35.0-45.0); ARTERIAL BLOOD GAS VENT MODE A/C; ARTERIAL DRAW? YES
[2016-05-26 05:28] LABS: HEMATOCRIT 27.1 % (35.0-45.0); HEMOGLOBIN 8.9 gm/dL (12.0-16.0); LYMPHOCYTE# 0.3 X10e3 (1.0-3.5); LYMPHOCYTE% 4.6 % (17.0-45.0); MEAN CORPUSCULAR HEMOGLOBIN 27.4 PG (28-34); MEAN CORPUSCULAR HGB CONC 32.6 g/dL (30-36); MEAN PLATELET VOLUME 7.1 FL (6.5-11.5); MONOCYTE# 0.1 X10e3 (0-1.0); MONOCYTE% 1.8 % (3.0-12.0); NEUTROPHIL% 93.6 % (40-75); PLATELET COUNT 254 X10e3 (140-420); RED BLOOD COUNT 3.23 X10e (3.90-5.30); RED CELL DISTRIBUTION WIDTH 18.3 % (11.0-15.5); WHITE BLOOD COUNT 7.5 X10e3 (4.0-10.5)
[2016-05-26 05:41] LABS: DIFF IND NO
[2016-05-26 05:57] LABS: ALBUMIN SERUM 1.7 g/dL (3.5-5.0); BUN/CREATININE RATIO 12.22; CALCIUM SERUM 7.9 mg/dL (8.4-10.2); CREATININE SERUM 0.9 mg/dL (0.6-1.4); GLOM FILT RATE Estimated 69.5 mL/min (>60); MAGNESIUM 1.6 mg/dL (1.6-3.0); POTASSIUM 3.2 mmol/L (3.5-5.1); PROTEIN TOTAL SERUM 4.5 g/dL (6.0-8.3)
[2016-05-27 04:38] LABS: ARTERIAL BLD GAS O2 SATURATION 98.3 % (90.0-100.0); ARTERIAL BLOOD GAS CARBOXY HB 0.9 %sat (0.0-9.0); ARTERIAL BLOOD GAS MET HB 0.5 %sat (0.0-2.0); ARTERIAL BLOOD GAS PCO2 49.7 mmHg (35.0-45.0); ARTERIAL BLOOD GAS pH 7.481 (7.350-7.450)
[2016-05-27 04:39] LABS: ARTERIAL BLOOD GAS ALLEN TEST NORMAL; ARTERIAL BLOOD GAS ART SITE RIGHT RADIAL; ARTERIAL BLOOD GAS DELIVERY VENT; ARTERIAL BLOOD GAS VENT MODE AC; ARTERIAL DRAW? YES
[2016-05-27 05:30] LABS: HEMOGLOBIN 8.7 gm/dL (12.0-16.0); LYMPHOCYTE# 0.4 X10e3 (1.0-3.5); LYMPHOCYTE% 3.9 % (17.0-45.0); MEAN CELL VOLUME 83.5 FL (83-96); MEAN CORPUSCULAR HEMOGLOBIN 27.1 PG (28-34); MEAN CORPUSCULAR HGB CONC 32.4 g/dL (30-36); MEAN PLATELET VOLUME 6.9 FL (6.5-11.5); MONOCYTE# 0.4 X10e3 (0-1.0); MONOCYTE% 3.3 % (3.0-12.0); NEUTROPHIL# 10.3 X10e3 (1.5-7.1); NEUTROPHIL% 92.8 % (40-75); PLATELET COUNT 257 X10e3 (140-420); RED BLOOD COUNT 3.23 X10e (3.90-5.30); RED CELL DISTRIBUTION WIDTH 18.4 % (11.0-15.5); WHITE BLOOD COUNT 11.1 X10e3 (4.0-10.5)
[2016-05-27 05:32] LABS: DIFF IND NO
[2016-05-27 06:34] LABS: ALBUMIN SERUM 1.9 g/dL (3.5-5.0); BILIRUBIN,TOTAL 0.9 mg/dL (0.2-2.0); BUN/CREATININE RATIO 12.22; CALCIUM SERUM 7.8 mg/dL (8.4-10.2); CREATININE SERUM 0.9 mg/dL (0.6-1.4); GLOM FILT RATE Estimated 69.5 mL/min (>60); MAGNESIUM 1.9 mg/dL (1.6-3.0); POTASSIUM 3.8 mmol/L (3.5-5.1); PROTEIN TOTAL SERUM 4.7 g/dL (6.0-8.3)
[2016-05-28 04:15] LABS: ARTERIAL BLD GAS O2 SATURATION 87.7 % (90.0-100.0); ARTERIAL BLOOD GAS CARBOXY HB 0.9 %sat (0.0-9.0); ARTERIAL BLOOD GAS HCO3 40.4 mmol/L; ARTERIAL BLOOD GAS MET HB 0.7 %sat (0.0-2.0); ARTERIAL BLOOD GAS pH 7.489 (7.350-7.450)
[2016-05-28 04:17] LABS: ARTERIAL BLOOD GAS PCO2 53.1 mmHg (35.0-45.0); ARTERIAL BLOOD GAS PO2 51.1 mmHg (80.0-100)
[2016-05-28 04:18] LABS: ARTERIAL BLOOD GAS ALLEN TEST NORMAL; ARTERIAL BLOOD GAS ART SITE RIGHT RADIAL; ARTERIAL BLOOD GAS DELIVERY VENT; ARTERIAL BLOOD GAS VENT MODE AC; ARTERIAL DRAW? YES
[2016-05-28 06:11] LABS: BASOPHIL% 0.1 % (0-2.5); EOSINOPHIL% 0.1 % (0.0-7.0); HEMATOCRIT 26.4 % (35.0-45.0); HEMOGLOBIN 8.6 gm/dL (12.0-16.0); LYMPHOCYTE# 0.4 X10e3 (1.0-3.5); LYMPHOCYTE% 3.9 % (17.0-45.0); MEAN CELL VOLUME 85.1 FL (83-96); MEAN CORPUSCULAR HEMOGLOBIN 27.6 PG (28-34); MEAN CORPUSCULAR HGB CONC 32.4 g/dL (30-36); MEAN PLATELET VOLUME 7.2 FL (6.5-11.5); MONOCYTE# 0.4 X10e3 (0-1.0); NEUTROPHIL# 9.8 X10e3 (1.5-7.1); NEUTROPHIL% 91.9 % (40-75); PLATELET COUNT 237 X10e3 (140-420); RED CELL DISTRIBUTION WIDTH 18.8 % (11.0-15.5); WHITE BLOOD COUNT 10.6 X10e3 (4.0-10.5)
[2016-05-28 06:57] LABS: DIFF IND NO
[2016-05-28 07:21] LABS: ALBUMIN SERUM 1.9 g/dL (3.5-5.0); BILIRUBIN,TOTAL 0.5 mg/dL (0.2-2.0); BUN/CREATININE RATIO 13.33; CALCIUM SERUM 7.7 mg/dL (8.4-10.2); CREATININE SERUM 0.9 mg/dL (0.6-1.4); GLOM FILT RATE Estimated 69.5 mL/min (>60); MAGNESIUM 1.9 mg/dL (1.6-3.0); PROTEIN TOTAL SERUM 4.7 g/dL (6.0-8.3)
[2016-05-29 04:22] LABS: BASOPHIL% 0.1 % (0-2.5); DIFF IND NO; HEMATOCRIT 26.6 % (35.0-45.0); HEMOGLOBIN 8.4 gm/dL (12.0-16.0); LYMPHOCYTE# 0.5 X10e3 (1.0-3.5); LYMPHOCYTE% 4.2 % (17.0-45.0); MEAN CELL VOLUME 84.8 FL (83-96); MEAN CORPUSCULAR HEMOGLOBIN 26.9 PG (28-34); MEAN CORPUSCULAR HGB CONC 31.7 g/dL (30-36); MEAN PLATELET VOLUME 7.2 FL (6.5-11.5); MONOCYTE# 0.5 X10e3 (0-1.0); MONOCYTE% 4.1 % (3.0-12.0); NEUTROPHIL# 10.6 X10e3 (1.5-7.1); NEUTROPHIL% 91.6 % (40-75); PLATELET COUNT 219 X10e3 (140-420); RED BLOOD COUNT 3.14 X10e (3.90-5.30); RED CELL DISTRIBUTION WIDTH 18.8 % (11.0-15.5); WHITE BLOOD COUNT 11.6 X10e3 (4.0-10.5)
[2016-05-29 04:23] LABS: ARTERIAL BLD GAS O2 SATURATION 99.9 % (90.0-100.0); ARTERIAL BLOOD GAS CARBOXY HB 0.2 %sat (0.0-9.0); ARTERIAL BLOOD GAS HCO3 41.5 mmol/L; ARTERIAL BLOOD GAS PCO2 49.2 mmHg (35.0-45.0); ARTERIAL BLOOD GAS pH 7.535 (7.350-7.450)
[2016-05-29 04:24] LABS: ARTERIAL BLOOD GAS ALLEN TEST NORMAL; ARTERIAL BLOOD GAS ART SITE RIGHT RADIAL; ARTERIAL BLOOD GAS DELIVERY VENT; ARTERIAL BLOOD GAS VENT MODE AC; ARTERIAL DRAW? YES
[2016-05-29 04:54] LABS: BILIRUBIN,TOTAL 0.5 mg/dL (0.2-2.0); BUN/CREATININE RATIO 17.77; CALCIUM SERUM 8.1 mg/dL (8.4-10.2); CREATININE SERUM 0.9 mg/dL (0.6-1.4); GLOM FILT RATE Estimated 69.5 mL/min (>60); POTASSIUM 3.5 mmol/L (3.5-5.1); PROTEIN TOTAL SERUM 4.9 g/dL (6.0-8.3)
[2016-05-30 04:05] LABS: ARTERIAL BLD GAS O2 SATURATION 97.2 % (90.0-100.0); ARTERIAL BLOOD GAS CARBOXY HB 0.8 %sat (0.0-9.0); ARTERIAL BLOOD GAS HCO3 42.2 mmol/L; ARTERIAL BLOOD GAS MET HB 0.8 %sat (0.0-2.0)
[2016-05-30 04:06] LABS: ARTERIAL BLOOD GAS ALLEN TEST NORMAL; ARTERIAL BLOOD GAS ART SITE RIGHT RADIAL; ARTERIAL BLOOD GAS DELIVERY VENT; ARTERIAL BLOOD GAS PCO2 52.9 mmHg (35.0-45.0); ARTERIAL BLOOD GAS VENT MODE AC; ARTERIAL DRAW? YES
[2016-05-30 05:41] LABS: BASOPHIL% 0.1 % (0-2.5); HEMATOCRIT 26.8 % (35.0-45.0); HEMOGLOBIN 8.5 gm/dL (12.0-16.0); LYMPHOCYTE# 0.6 X10e3 (1.0-3.5); LYMPHOCYTE% 3.9 % (17.0-45.0); MEAN CELL VOLUME 85.6 FL (83-96); MEAN CORPUSCULAR HEMOGLOBIN 27.2 PG (28-34); MEAN CORPUSCULAR HGB CONC 31.7 g/dL (30-36); MEAN PLATELET VOLUME 7.7 FL (6.5-11.5); MONOCYTE# 0.6 X10e3 (0-1.0); MONOCYTE% 3.9 % (3.0-12.0); NEUTROPHIL# 14.2 X10e3 (1.5-7.1); NEUTROPHIL% 92.1 % (40-75); PLATELET COUNT 228 X10e3 (140-420); RED BLOOD COUNT 3.13 X10e (3.90-5.30); RED CELL DISTRIBUTION WIDTH 19.2 % (11.0-15.5); WHITE BLOOD COUNT 15.4 X10e3 (4.0-10.5)
[2016-05-30 05:45] LABS: DIFF IND YES
[2016-05-30 05:56] LABS: ALBUMIN SERUM 2.1 g/dL (3.5-5.0); BILIRUBIN,TOTAL 0.6 mg/dL (0.2-2.0); BUN/CREATININE RATIO 18.88; CREATININE SERUM 0.9 mg/dL (0.6-1.4); GLOM FILT RATE Estimated 69.5 mL/min (>60); MAGNESIUM 1.8 mg/dL (1.6-3.0); POTASSIUM 3.2 mmol/L (3.5-5.1)
[2016-05-30 06:26] LABS: HYPOCHROMIA MOD; PLATELET ESTIMATE NORMAL (NORMAL); SCHISTOCYTES PRESENT; TARGET CELLS SL
[2016-05-31 05:46] LABS: EOSINOPHIL# 0.1 X10e3 (0-0.7); EOSINOPHIL% 0.4 % (0.0-7.0); HEMATOCRIT 27.7 % (35.0-45.0); HEMOGLOBIN 8.7 gm/dL (12.0-16.0); LYMPHOCYTE# 1.3 X10e3 (1.0-3.5); LYMPHOCYTE% 9.5 % (17.0-45.0); MEAN CORPUSCULAR HEMOGLOBIN 26.8 PG (28-34); MEAN CORPUSCULAR HGB CONC 31.5 g/dL (30-36); MEAN PLATELET VOLUME 7.8 FL (6.5-11.5); MONOCYTE# 0.7 X10e3 (0-1.0); NEUTROPHIL# 11.8 X10e3 (1.5-7.1); NEUTROPHIL% 85.1 % (40-75); PLATELET COUNT 224 X10e3 (140-420); RED BLOOD COUNT 3.26 X10e (3.90-5.30); RED CELL DISTRIBUTION WIDTH 19.2 % (11.0-15.5); WHITE BLOOD COUNT 13.8 X10e3 (4.0-10.5)
[2016-05-31 05:51] LABS: DIFF IND NO
[2016-05-31 06:37] LABS: BUN/CREATININE RATIO 22.22; CALCIUM SERUM 7.8 mg/dL (8.4-10.2); CREATININE SERUM 0.9 mg/dL (0.6-1.4); GLOM FILT RATE Estimated 69.5 mL/min (>60); MAGNESIUM 2.1 mg/dL (1.6-3.0); POTASSIUM 3.7 mmol/L (3.5-5.1)
[2016-05-31 07:41] LABS: ARTERIAL BLD GAS O2 SATURATION 95.3 % (90.0-100.0); ARTERIAL BLOOD GAS CARBOXY HB 0.5 %sat (0.0-9.0); ARTERIAL BLOOD GAS HCO3 43.5 mmol/L; ARTERIAL BLOOD GAS MET HB 0.9 %sat (0.0-2.0); ARTERIAL BLOOD GAS PCO2 55.4 mmHg (35.0-45.0); ARTERIAL BLOOD GAS PO2 78.2 mmHg (80.0-100); ARTERIAL BLOOD GAS pH 7.503 (7.350-7.450)
[2016-05-31 07:42] LABS: ARTERIAL BLOOD GAS ALLEN TEST NORMAL; ARTERIAL BLOOD GAS ART SITE RIGHT RADIAL; ARTERIAL BLOOD GAS DELIVERY VENT; ARTERIAL BLOOD GAS VENT MODE AC; ARTERIAL DRAW? YES
[2016-06-01 07:09] LABS: BUN/CREATININE RATIO 17.27; CALCIUM SERUM 7.8 mg/dL (8.4-10.2); CREATININE SERUM 1.1 mg/dL (0.6-1.4); GLOM FILT RATE Estimated 54.5 mL/min (>60); POTASSIUM 3.6 mmol/L (3.5-5.1)
[2016-06-02 05:17] LABS: BUN/CREATININE RATIO 16.36; CALCIUM SERUM 8.1 mg/dL (8.4-10.2); CREATININE SERUM 1.1 mg/dL (0.6-1.4); GLOM FILT RATE Estimated 54.5 mL/min (>60); POTASSIUM 3.4 mmol/L (3.5-5.1)
== END 2016-06-05 08:38 | DRG 853 ==
LOC: CED 23:21 → CEDOF 05-20 00:30 → C3A PCU 05-20 01:38 → CICCU3 05-21 17:56 → C2A 06-02 22:36
PROVIDERS: Emergency Medicine; Family Medicine; Internal Medicine; Internal Medicine Cardiovascular Disease; Internal Medicine Infectious Disease; Internal Medicine Pulmonary Disease; Nurse Practitioner Family; Obstetrics & Gynecology
PROC: 0BH17EZ Insertion of Endotracheal Airway into Trachea, Via Natural or Artificial Opening (ICD-10-PCS; 2016-05-21)
PROC: 5A1955Z Respiratory Ventilation, Greater than 96 Consecutive Hours (ICD-10-PCS; 2016-05-21)
PROC: 0B9M8ZZ Drainage of Bilateral Lungs, Via Natural or Artificial Opening Endoscopic (ICD-10-PCS; 2016-05-23)
PROC: 0B968ZX Drainage of Right Lower Lobe Bronchus, Via Natural or Artificial Opening Endoscopic, Diagnostic (ICD-10-PCS; 2016-05-23)
PROC: 05HM33Z Insertion of Infusion Device into Right Internal Jugular Vein, Percutaneous Approach (ICD-10-PCS; 2016-05-23)
PROC: 30233N1 Transfusion of Nonautologous Red Blood Cells into Peripheral Vein, Percutaneous Approach (ICD-10-PCS; principal; 2016-05-24)
DX: A41.9 Sepsis, unspecified organism (principal); R65.21 Severe sepsis with septic shock; J69.0 Pneumonitis due to inhalation of food and vomit; J96.01 Acute respiratory failure with hypoxia; E43 Unspecified severe protein-calorie malnutrition; L89.154 Pressure ulcer of sacral region, stage 4; N17.9 Acute kidney failure, unspecified; D62 Acute posthemorrhagic anemia; E11.65 Type 2 diabetes mellitus with hyperglycemia; Z68.1 Body mass index [BMI] 19.9 or less, adult; Z99.11 Dependence on respirator [ventilator] status; J11.1 Influenza due to unidentified influenza virus with other respiratory manifestations; E78.5 Hyperlipidemia, unspecified; I48.0 Paroxysmal atrial fibrillation; I25.10 Atherosclerotic heart disease of native coronary artery without angina pectoris; Z66 Do not resuscitate; Z51.5 Encounter for palliative care; I25.2 Old myocardial infarction; F01.50 Vascular dementia, unspecified severity, without behavioral disturbance, psychotic disturbance, mood disturbance, and anxiety; I12.9 Hypertensive chronic kidney disease with stage 1 through stage 4 chronic kidney disease, or unspecified chronic kidney disease; N18.9 Chronic kidney disease, unspecified; Z88.2 Allergy status to sulfonamides; Z79.82 Long term (current) use of aspirin; E86.0 Dehydration; E87.6 Hypokalemia; E83.42 Hypomagnesemia; I69.391 Dysphagia following cerebral infarction; R13.10 Dysphagia, unspecified; K94.29 Other complications of gastrostomy
CPT/HCPCS: 36415; 36600; 71010; 74020; 80048; 80053; 80076; 80162; 80200; 80202; 81003; 82553; 82803; 82947; 83605; 83735; 83880; 84100; 84132; 84134; 84439; 84443; 84481; 84484; 85025; 85027; 85652; 86140; 86850; 86900; 86901; 86923; 87040; 87070; 87086; 87102; 87106; 87116; 87205; 87206; 87252; 87254; 87278; 87449; 87493; 87804; 87899; 88108; 88305; 88312; 89051; 89190; 93005; 93970; 94002; 94003; 94640; 94760; 96374; 99291; C9113; J0171; J0282; J1160; J1200; J1265; J1720; J1940; J2060; J2250; J2270; J2543; J2765; J2920; J2930; J3010; J3260; J3370; J3475; P9016